=== PATIENT | male | born 1935 | race Caucasian/White ===

== ENCOUNTER 2022-09-29 10:51 | Emergency (ER) | payer MEDICARE, MEDICAID ==
[~2022-09-29] VITALS: Ht 172.7 cm; Wt 82.3 kg
[2022-09-29 11:21] LABS: CLARITY,URINE CLOUDY (Clear); COLOR,URINE YELLOW (Yellow); GLUCOSE, URINE >=1000 mg/dl (Neg); KETONES,URINE NEGATIVE (Neg); LEUKOCYTE ESTERASE ,URINE NEGATIVE (Neg); NITRITES, URINE NEGATIVE (Neg); OCCULT BLOOD,URINE LARGE (Neg); PROTEIN,URINE 100 mg/dl (Neg); UA COLLECTION TYPE VOIDED; UROBILINOGEN,URINE 0.2 E.U/dL (0.2-1.0)
[2022-09-29 11:25] LABS: BASOPHILS # (AUTO) 0.1 X10'3 (0-0.2); EOSINOPHILS # (AUTO) 0.2 X10'3 (0-0.9); EOSINOPHILS % (AUTO) 3.6 % (0-6); HEMATOCRIT 40.4 % (42.0-52.0); HEMOGLOBIN 12.9 g/dl (14.0-17.9); LYMPHOCYTES # (AUTO) 1.1 X10'3 (1.1-4.8); LYMPHOCYTES % (AUTO) 21.3 % (21-51); MEAN CORPUSCULAR HEMOGLOBIN 29.4 PG (27.0-31.0); MEAN CORPUSCULAR VOLUME 91.7 FL (78-98); MEAN PLATELET VOLUME 8.8 FL (7.4-10.4); MONOCYTES # (AUTO) 0.5 X10'3 (0-0.9); NEUTROPHILS # (AUTO) 3.4 X10'3 (1.8-7.7); NEUTROPHILS % (AUTO) 64.1 % (42-75); PLATELET COUNT 161 X10'3 (140-440); RED BLOOD COUNT 4.41 X10'6 (4.70-6.10); RED CELL DISTRIBUTION WIDTH 14.6 % (11.5-14.5); WHITE BLOOD COUNT 5.4 X10'3 (4.5-11.0)
[2022-09-29 11:34] LABS: HYALINE CASTS 0-3 /LPF (NEGATIVE); MUCUS STRANDS FEW /LPF (Neg); SQUAMOUS EPITHELIAL CELL,UR FEW /LPF (FEW)
[2022-09-29 11:35] LABS: BACTERIA,URINE FEW /HPF (Neg); RBC,URINE TNTC /HPF (0-2); WBC,URINE 0-4 /HPF (0-4)
[2022-09-29 11:39] LABS: ALANINE AMINOTRANSFERASE 23 U/L (12-78); ALBUMIN 3.1 G/DL (3.4-5.0); ALBUMIN/GLOBULIN RATIO 0.8 (1.1-1.5); ALKALINE PHOSPHATASE 85 IU/L (46-116); ANION GAP 2 (8-16); ASPARTATE AMINO TRANSFERASE 22 U/L (10-37); BILIRUBIN,TOTAL 0.5 MG/DL (0.1-1.0); BLOOD UREA NITROGEN 25 MG/DL (7-18); CALCIUM 8.8 MG/DL (8.5-10.1); CHLORIDE 106 MMOL/L (99-107); CREATININE 1.67 MG/DL (0.60-1.10); GLUCOSE 311 MG/DL (70-104); LIPASE 80 U/L (73-393); POTASSIUM 4.5 MMOL/L (3.5-5.1); SODIUM 141 MMOL/L (135-145); TOTAL CARBON DIOXIDE 32.8 MMOL/L (24-32); TOTAL PROTEIN 7.1 G/DL (6.4-8.2); eGFR 39 ML/MIN
[2022-09-29 12:17] VITALS: BP 161/86
== END 2022-09-29 12:19 | disposition home or self-care (01) ==
LOC: ER 10:51
DX: E11.22 Type 2 diabetes mellitus with diabetic chronic kidney disease (principal); N18.9 Chronic kidney disease, unspecified; R31.9 Hematuria, unspecified
CPT/HCPCS: 36415; 80053; 81001; 83690; 85025; 99284

== ENCOUNTER 2023-04-01 13:57 | Inpatient (IN) | payer MEDICARE, MEDICAID ==
[~2023-04-01] VITALS: Ht 172.7 cm; Wt 97.7 kg
[2023-04-01 14:18] LABS: BASOPHILS # (AUTO) 0.1 X10'3 (0-0.2); BASOPHILS % (AUTO) 1.1 % (0-1); EOSINOPHILS # (AUTO) 0.2 X10'3 (0-0.9); EOSINOPHILS % (AUTO) 3.4 % (0-6); HEMATOCRIT 41.7 % (42.0-52.0); HEMOGLOBIN 13.6 g/dl (14.0-17.9); LYMPHOCYTES # (AUTO) 1.3 X10'3 (1.1-4.8); LYMPHOCYTES % (AUTO) 20.6 % (21-51); MEAN CORPUSCULAR HGB CONC 32.7 g/dL (33.0-36.5); MEAN CORPUSCULAR VOLUME 91.6 FL (78-98); MEAN PLATELET VOLUME 8.3 FL (7.4-10.4); MONOCYTES # (AUTO) 0.6 X10'3 (0-0.9); MONOCYTES % (AUTO) 9.5 % (2-12); NEUTROPHILS % (AUTO) 65.4 % (42-75); PLATELET COUNT 175 X10'3 (140-440); RED BLOOD COUNT 4.55 X10'6 (4.70-6.10); RED CELL DISTRIBUTION WIDTH 14.8 % (11.5-14.5); WHITE BLOOD COUNT 6.1 X10'3 (4.5-11.0)
[2023-04-01 14:34] LABS: ALANINE AMINOTRANSFERASE 22 U/L (12-78); ALBUMIN/GLOBULIN RATIO 0.8 (1.1-1.5); ALKALINE PHOSPHATASE 96 IU/L (46-116); ANION GAP 5 (8-16); ASPARTATE AMINO TRANSFERASE 19 U/L (10-37); BILIRUBIN,TOTAL 0.5 MG/DL (0.1-1.0); BLOOD UREA NITROGEN 25 MG/DL (7-18); BUN/CREATININE RATIO 12.5 (10.0-20.0); CHLORIDE 105 MMOL/L (99-107); GLUCOSE 225 MG/DL (70-104); POTASSIUM 4.7 MMOL/L (3.5-5.1); SODIUM 140 MMOL/L (135-145); TOTAL CARBON DIOXIDE 30.3 MMOL/L (24-32); eGFR 32 ML/MIN
--- NOTE | 2023-04-01 18:35 | NUR ---
DR BROWN NOTIFIED OF PT HIGH BP. PT DENEIS HEADACHE RO PAIN. PER CAREGIVER, PT HAD HTN AND TAKES MEDICATION FOR IT BUT HAS NOT HAD TONIGHTS DOSE DUE TO BEING HERE.
[2023-04-01] MEDS ORDERED: morphine 2 MG/ML inj. syringe IV ONE (18:50)
[2023-04-01] MEDS ORDERED: nitroGLYCERIN 1gm ointment UD TP ONE (18:50)
[2023-04-01] MEDS ORDERED: ondansetron/PF 4mg/2ml inj IV ONE (19:25)
[2023-04-01] MEDS ORDERED: iohexol 350MG/ML 100ml bottle IV ONE (19:46)
[2023-04-01] MEDS: MESSAGE TO NURSING PO NR (20:37)
[2023-04-01] MEDS ORDERED: temazepam 15mg capsule PO PRN (21:00)
[2023-04-01] MEDS ORDERED: ESCI5TAB17 PO (22:11)
[2023-04-01] MEDS ORDERED: GLIP5TAB13 PO (22:11)
[2023-04-01] MEDS ORDERED: SITA100T15 PO (22:11)
[2023-04-01] MEDS ORDERED: OMEP40CA21 PO (22:11)
[2023-04-01] MEDS ORDERED: SIMV-42 PO (22:11)
[2023-04-01] MEDS ORDERED: FLO0.4C PO (22:11)
[2023-04-01] MEDS ORDERED: ROPI1TAB47 PO (22:11)
[2023-04-01] MEDS ORDERED: GABA300C PO (22:12)
[2023-04-01] MEDS ORDERED: DOCU100C40 PO (23:03)
[2023-04-01] MEDS ORDERED: LORA10TA7 PO (23:03)
[2023-04-01] MEDS ORDERED: ASPI-1265 PO (23:03)
[2023-04-01] MEDS ORDERED: NITR0.4T51 SL (23:03)
[2023-04-01] MEDS ORDERED: POLY17PO10 PO (23:03)
[2023-04-01] MEDS ORDERED: ACET-1995 PO (23:03)
[2023-04-01] MEDS ORDERED: CALC-102 PO (23:03)
[2023-04-01] MEDS ORDERED: MELA5TAB21 PO (23:03)
--- NOTE | 2023-04-01 23:05 | NUR ---
LEO MCINTOSH- [phone] TERRA[employer]O LABORER
--- NOTE | 2023-04-01 23:11 | NUR ---
PT LIVED AT [facility] Addendum: 04/01/23 at 2311 by [facility] AND IS NOT CONSERVED.
[2023-04-01] MEDS ORDERED: morphine 2 MG/ML inj. syringe IV PRN ×2 (23:15)
[2023-04-01] MEDS ORDERED: ondansetron 4mg rapidly disintigrating tab PO PRN (23:15)
[2023-04-01] MEDS ORDERED: HYDROcodone/acetaminophen 10/325mg tab PO PRN (23:15)
[2023-04-01] MEDS ORDERED: HYDROcodone/acetaminophen 5mg/325mg tablet PO PRN (23:15)
[2023-04-01] MEDS ORDERED: mag hydrox/Alum hydrox/simeth 30ml oral suspension PO PRN (23:15)
[2023-04-01] MEDS ORDERED: diphenhydrAMINE 50 mg/ml inj IV PRN (23:15)
[2023-04-01] MEDS ORDERED: diphenhydrAMINE 25mg capsule PO PRN (23:15)
[2023-04-01] MEDS ORDERED: bisacodyl 10mg suppository rectal RC PRN (23:15)
[2023-04-01] MEDS ORDERED: acetaminophen 325mg tablet PO PRN ×2 (23:15)
[2023-04-01] MEDS ORDERED: ondansetron/PF 4mg/2ml inj IV PRN (23:15)
[2023-04-01] MEDS ORDERED: acetaminophen 650mg rectal suppository RC PRN (23:15)
[2023-04-01] MEDS ORDERED: magnesium hydroxide 30ml (MOM) UD suspension PO PRN (23:15)
[2023-04-01] MEDS ORDERED: DEXTROSE 15 GM of carb/4 tabs (each vial/BOTTLE has 4 tablets) PO PRN ×2 (23:20)
[2023-04-01] MEDS ORDERED: MESSAGE TO PHARMACY PO ONE (23:20)
[2023-04-01] MEDS ORDERED: regadenoson 0.4mg/5ml syringe IV PRN (23:20)
[2023-04-01] MEDS ORDERED: nitroGLYCERIN 0.4mg SUBLingual tab SL PRN (23:20)
[2023-04-01] MEDS ORDERED: dextrose 50%-water 50ml dispensing syringe IV PRN ×2 (23:20)
[2023-04-01] MEDS ORDERED: insulin Lispro (HumaLOG) vial - multi-dose SQ SCH (23:20)
[2023-04-01] MEDS ORDERED: aminophylline 250mg/10ml inj. IV PRN (23:20)
[2023-04-01] MEDS ORDERED: metoprolol tartrate 1mg/ml inj IV PRN (23:20)
[2023-04-01] MEDS ORDERED: glucagon, human recombinant 1mg kit SUBCUT PRN (23:20)
[2023-04-01] MEDS: sodium chloride 0.45% 1,000 ML IV SCH (23:41)
[2023-04-02] VITALS (11 sets, daily range): BP systolic 113–173; BP diastolic 61–97; PULSE 79–98; RESP 14–18; TEMP 97.7–98.6; O2SAT 95–100
[2023-04-02] MEDS: heparin, porcine 5000 units/ml vial SQ SCH ×2 (00:33→08:43)
[2023-04-02 00:38] LABS: BASOPHILS # (AUTO) 0.1 X10'3 (0-0.2); EOSINOPHILS # (AUTO) 0.2 X10'3 (0-0.9); HEMATOCRIT 38.6 % (42.0-52.0); LYMPHOCYTES # (AUTO) 1.3 X10'3 (1.1-4.8); LYMPHOCYTES % (AUTO) 20.6 % (21-51); MEAN CORPUSCULAR HGB CONC 33.6 g/dL (33.0-36.5); MEAN CORPUSCULAR VOLUME 92.2 FL (78-98); MEAN PLATELET VOLUME 8.5 FL (7.4-10.4); MONOCYTES # (AUTO) 0.6 X10'3 (0-0.9); MONOCYTES % (AUTO) 10.1 % (2-12); NEUTROPHILS % (AUTO) 64.3 % (42-75); PLATELET COUNT 161 X10'3 (140-440); RED BLOOD COUNT 4.18 X10'6 (4.70-6.10); RED CELL DISTRIBUTION WIDTH 14.6 % (11.5-14.5); WHITE BLOOD COUNT 6.2 X10'3 (4.5-11.0)
[2023-04-02 01:02] LABS: HEMOGLOBIN A1C 7.3 % (4.5-6.2)
[2023-04-02 01:18] LABS: APTT 26 SECONDS (22-32)
[2023-04-02 01:36] LABS: ALANINE AMINOTRANSFERASE 23 U/L (12-78); ALBUMIN 2.8 G/DL (3.4-5.0); ALBUMIN/GLOBULIN RATIO 0.8 (1.1-1.5); ALKALINE PHOSPHATASE 89 IU/L (46-116); ANION GAP 3 (8-16); ASPARTATE AMINO TRANSFERASE 22 U/L (10-37); BILIRUBIN,TOTAL 0.4 MG/DL (0.1-1.0); BLOOD UREA NITROGEN 23 MG/DL (7-18); BUN/CREATININE RATIO 12.5 (10.0-20.0); CALCIUM 8.8 MG/DL (8.5-10.1); CHLORIDE 106 MMOL/L (99-107); CHOL/HDL RATIO 3.2 (0.00-4.99); CHOLESTEROL 149 MG/DL (0-200); CREATININE 1.84 MG/DL (0.60-1.10); GLUCOSE 183 MG/DL (70-104); HDL CHOLESTEROL 47 MG/DL (35-60); LDL CHOLESTEROL 80 MG/DL (50-100); MAGNESIUM 2.1 MG/DL (1.5-2.4); PHOSPHORUS 4.7 MG/DL (2.3-4.5); POTASSIUM 4.2 MMOL/L (3.5-5.1); SODIUM 142 MMOL/L (135-145); TOTAL CARBON DIOXIDE 33.1 MMOL/L (24-32); TOTAL PROTEIN 6.5 G/DL (6.4-8.2); TRIGLYCERIDES 97 MG/DL (20-135); eGFR 35 ML/MIN
--- NOTE | 2023-04-02 06:30 | NUR ---
ASSUMED CARE FROM ALICJA VIEYRA. PT WAS LAYING IN URINE, ALL BLANKETS WERE WET WITH URINE. THIS RN ASKED ALICJA WHEN THE LAST TIME SHE CHECKED TO SEE IF PT WAS CONT/INCONT ALICJA STATES SHE HADN'T. PT WAS CHANGED INTO CLEAN DRY CLOTHES. BEDDING WAS ALSO CHANGED. pT WAS ASSISTED TO THE RR.
[2023-04-02] MEDS ORDERED: docusate sod 100mg capsule PO SCH (08:00)
--- NOTE | 2023-04-02 08:51 | NUR ---
Pt taken to his stress test.
--- NOTE | 2023-04-02 08:55 | NUR ---
pt to nuc med on monitor with RN, pt able to transfer self with min assist from wheelchair to nuc med table
[2023-04-02] MEDS ORDERED: pantoprazole 40mg Tablet.DR PO SCH (09:13)
[2023-04-02] MEDS: sodium chloride 0.45% 1,000 ML IV SCH (09:15)
[2023-04-02] MEDS: MESSAGE TO NURSING PO NR (10:00)
--- NOTE | 2023-04-02 10:01 | NUR ---
report given to Ayah RN, pt to go PCU after stress test
--- NOTE | 2023-04-02 13:10 | NUR ---
[facility] AT [facility]ED[facility] - SOON JASMINE SCAN IS AVAILABLE, THEY WILL WRITE DC ORDERS TO GO HOME
--- NOTE | 2023-04-02 14:44 | NUR ---
DM Consult: Pt hx T2DM and developmental delay A1C 7.3% per EMR. A1C appropriate given advanced age and education not appropriate given hx; ed deferred. Addendum: 04/02/23 at [address] Amended: Links added.
--- NOTE | 2023-04-02 14:52 | NUR ---
STRESS TEST RESULTS ARE BACK AND I CALLED DR BUTLER TO LET HER KNOW -
[2023-04-02] MEDS ORDERED: CALC-102 PO (15:29)
[2023-04-02] MEDS ORDERED: POLY17PO10 PO (15:29)
[2023-04-02] MEDS ORDERED: LISI5TAB22 PO (15:29)
--- NOTE | 2023-04-02 15:44 | NUR ---
PT HAS DC ORDERS. SPOKE WITH BARRY FROM HIS FACILITY AND SHE STATED SUJATHA - A STAFF MEMBER WILL BE COMING TO PICK PATIENT UP.
--- NOTE | 2023-04-02 17:09 | NUR ---
pt dc'd back to his private facility. all dc instructions explained to beto, a staff member at the facility with beto verbalizing understanding regarding the plan of care. pts vss, he is instructed to follow up with his pmd and get a referral to a image archivist to have an echocardiogram. pt left via his own wheelchair
[2023-04-02] MEDS ORDERED: Melatonin 3mg tablet PO SCH (21:00)
[2023-04-02] MEDS ORDERED: atorvastatin 10mg tablet PO SCH (21:00)
[2023-04-02] MEDS ORDERED: gabapentin 300mg capsule PO SCH (21:00)
[2023-04-02] MEDS ORDERED: ROPINIRole 1mg tablet PO SCH (21:00)
[2023-04-02] MEDS ORDERED: insulin glargine (Lantus) pen - multi-dose SQ SCH (21:00)
[2023-04-03] MEDS ORDERED: ESCITALOPRAM OXALATE 5 MG TABLET PO SCH (08:00)
[2023-04-03] MEDS ORDERED: polyethylene glycol 3350 17gm powd pack PO SCH (08:00)
[2023-04-03] MEDS ORDERED: aspirin 81mg tab.chew PO SCH (08:00)
[2023-04-03] MEDS ORDERED: tamsulosin 0.4mg capsule PO SCH (08:00)
== END 2023-04-02 17:01 | disposition home or self-care (01) | DRG 305 ==
LOC: ER 13:58 → ED HOLD 23:16 → EDBEDREQ 23:47 → PCU 3S 04-02 10:16
PROVIDERS: ADMIT Family Medicine; ATTEND Internal Medicine
PROC: 4A02XM4 Measurement of Cardiac Total Activity, External Approach (ICD-10-PCS; principal; 2023-04-01)
PROC: 3E073KZ Introduction of Other Diagnostic Substance into Coronary Artery, Percutaneous Approach (ICD-10-PCS; 2023-04-01)
PROC: BW251ZZ Computerized Tomography (CT Scan) of Chest, Abdomen and Pelvis using Low Osmolar Contrast (ICD-10-PCS; 2023-04-01)
DX: I16.0 Hypertensive urgency (principal); I16.1 Hypertensive emergency; N17.9 Acute kidney failure, unspecified; E78.5 Hyperlipidemia, unspecified; E11.22 Type 2 diabetes mellitus with diabetic chronic kidney disease; E11.65 Type 2 diabetes mellitus with hyperglycemia; G25.81 Restless legs syndrome; R07.89 Other chest pain; G89.4 Chronic pain syndrome; I12.9 Hypertensive chronic kidney disease with stage 1 through stage 4 chronic kidney disease, or unspecified chronic kidney disease; J44.9 Chronic obstructive pulmonary disease, unspecified; K21.9 Gastro-esophageal reflux disease without esophagitis; N18.30 Chronic kidney disease, stage 3 unspecified; N40.0 Benign prostatic hyperplasia without lower urinary tract symptoms; R26.9 Unspecified abnormalities of gait and mobility; Z79.899 Other long term (current) drug therapy; Z79.82 Long term (current) use of aspirin
CPT/HCPCS: 36415; 71045; 71275; 74174; 78452; 80053; 80061; 83036; 83735; 83880; 84100; 84443; 84484; 85025; 85610; 85730; 93005; 93017; 97116; 97161; 97530; 99285; A9500; G0378; J1644; J1815; J2270; J2405; J2785; J3490; J7030; Q9967

== ENCOUNTER 2023-05-17 13:22 | Emergency (ER) | payer MEDICARE, MEDICAID ==
[~2023-05-17] VITALS: Ht 172.7 cm; Wt 96.4 kg
[~2023-05-17 13:22] MED LIST: ACET-1995 PO; ASPI-1265 PO; CALC-102 PO; DOCU100C40 PO; ESCI5TAB17 PO; FLO0.4C PO; GABA300C PO; LISI5TAB22 PO; MELA5TAB21 PO; NITR0.4T51 SL; OMEP40CA21 PO; POLY17PO10 PO; ROPI1TAB47 PO; SIMV-42 PO; SITA100T15 PO
[2023-05-17 13:28] VITALS: PULSE 113
--- NOTE | 2023-05-17 14:34 | NUR ---
PER DR COLEMAN NO HEAD CT NEEDED AT THIS TIME
[2023-05-17 14:49] LABS: BASOPHILS % (AUTO) 0.3 % (0-1); EOSINOPHILS % (AUTO) 0.2 % (0-6); HEMATOCRIT 42.3 % (42.0-52.0); HEMOGLOBIN 13.8 g/dl (14.0-17.9); LYMPHOCYTES # (AUTO) 0.7 X10'3 (1.1-4.8); LYMPHOCYTES % (AUTO) 8.5 % (21-51); MEAN CORPUSCULAR HEMOGLOBIN 30.3 PG (27.0-31.0); MEAN CORPUSCULAR HGB CONC 32.6 g/dL (33.0-36.5); MEAN PLATELET VOLUME 8.7 FL (7.4-10.4); NEUTROPHILS # (AUTO) 6.7 X10'3 (1.8-7.7); PLATELET COUNT 169 X10'3 (140-440); RED BLOOD COUNT 4.55 X10'6 (4.70-6.10); RED CELL DISTRIBUTION WIDTH 14.7 % (11.5-14.5); WHITE BLOOD COUNT 8.5 X10'3 (4.5-11.0)
[2023-05-17 15:05] LABS: ALANINE AMINOTRANSFERASE 23 U/L (12-78); ALBUMIN 3.2 G/DL (3.4-5.0); ALBUMIN/GLOBULIN RATIO 0.7 (1.1-1.5); ALKALINE PHOSPHATASE 118 IU/L (46-116); ANION GAP 5 (8-16); ASPARTATE AMINO TRANSFERASE 27 U/L (10-37); BLOOD UREA NITROGEN 19 MG/DL (7-18); BUN/CREATININE RATIO 10.9 (10.0-20.0); CALCIUM 9.4 MG/DL (8.5-10.1); CHLORIDE 99 MMOL/L (99-107); CREATININE 1.75 MG/DL (0.60-1.10); GLUCOSE 283 MG/DL (70-104); LIPASE < 50 U/L (73-393); POTASSIUM 4.6 MMOL/L (3.5-5.1); SODIUM 134 MMOL/L (135-145); TOTAL PROTEIN 7.8 G/DL (6.4-8.2); eCRCL 29 ML/MIN; eGFR 37 ML/MIN
[2023-05-17] MEDS ORDERED: normal saline 1000ML IV soln IVB ONE (16:30)
[2023-05-17] MEDS ORDERED: lactulose 20gm/30ml cup PO ONE (17:40)
[2023-05-17 18:09] VITALS: BP 184/88; RESP 18; TEMP 99; O2SAT 96
[2023-05-18] MEDS ORDERED: DOCU-171 PO (17:02)
== END 2023-05-17 18:13 | disposition home or self-care (01) ==
LOC: ER 13:22
DX: K59.00 Constipation, unspecified (principal); E78.00 Pure hypercholesterolemia, unspecified; I10 Essential (primary) hypertension; E13.22 Other specified diabetes mellitus with diabetic chronic kidney disease; I12.9 Hypertensive chronic kidney disease with stage 1 through stage 4 chronic kidney disease, or unspecified chronic kidney disease; N18.9 Chronic kidney disease, unspecified
CPT/HCPCS: 36415; 74176; 80053; 83690; 84145; 85025; 99284; J7030

== ENCOUNTER 2023-05-18 09:19 | Emergency (ER) | payer MEDICARE, MEDICAID ==
[~2023-05-18] VITALS: Ht 172.7 cm; Wt 100.0 kg
[2023-05-18 09:33] VITALS: TEMP 98
[2023-05-18] MEDS ORDERED: ondansetron/PF 4mg/2ml inj IV ONE (12:50)
[2023-05-18] MEDS ORDERED: normal saline 1000ML IV soln IVB ONE (12:50)
[2023-05-18 14:07] LABS: BASOPHILS % (AUTO) 0.3 % (0-1); EOSINOPHILS % (AUTO) 0.1 % (0-6); HEMOGLOBIN 12.9 g/dl (14.0-17.9)
[2023-05-18 14:11] LABS: HEMATOCRIT 38.8 % (42.0-52.0); LYMPHOCYTES # (AUTO) 0.6 X10'3 (1.1-4.8); LYMPHOCYTES % (AUTO) 6.5 % (21-51); MEAN CORPUSCULAR HEMOGLOBIN 30.6 PG (27.0-31.0); MEAN CORPUSCULAR HGB CONC 33.1 g/dL (33.0-36.5); MEAN CORPUSCULAR VOLUME 92.3 FL (78-98); MEAN PLATELET VOLUME 8.5 FL (7.4-10.4); MONOCYTES % (AUTO) 10.4 % (2-12); NEUTROPHILS # (AUTO) 8.2 X10'3 (1.8-7.7); NEUTROPHILS % (AUTO) 82.7 % (42-75); PLATELET COUNT 175 X10'3 (140-440); RED BLOOD COUNT 4.21 X10'6 (4.70-6.10); RED CELL DISTRIBUTION WIDTH 14.7 % (11.5-14.5); WHITE BLOOD COUNT 9.9 X10'3 (4.5-11.0)
[2023-05-18 14:19] LABS: ALANINE AMINOTRANSFERASE 26 U/L (12-78); ALBUMIN 2.9 G/DL (3.4-5.0); ALBUMIN/GLOBULIN RATIO 0.7 (1.1-1.5); ALKALINE PHOSPHATASE 109 IU/L (46-116); ANION GAP 6 (8-16); ASPARTATE AMINO TRANSFERASE 34 U/L (10-37); BLOOD UREA NITROGEN 17 MG/DL (7-18); CHLORIDE 99 MMOL/L (99-107); CREATININE 1.54 MG/DL (0.60-1.10); GLUCOSE 210 MG/DL (70-104); LIPASE < 50 U/L (73-393); SODIUM 133 MMOL/L (135-145); TOTAL CARBON DIOXIDE 27.8 MMOL/L (24-32); TOTAL PROTEIN 7.1 G/DL (6.4-8.2); eCRCL 33 ML/MIN; eGFR 43 ML/MIN
[2023-05-18 14:40] VITALS: BP 148/98; PULSE 78; RESP 18; O2SAT 94
[2023-05-18 14:44] LABS: POTASSIUM 4.4 MMOL/L (3.5-5.1)
[2023-05-18] MEDS ORDERED: bisacodyl 10mg suppository rectal RC STA (15:23)
[2023-05-18] MEDS ORDERED: lactulose 20gm/30ml cup PO ONE (15:40)
[2023-05-18] MEDS ORDERED: DOCU-171 PO (17:02)
[2023-05-19] MEDS ORDERED: ISOS30TA84 PO (13:03)
[2023-05-19] MEDS ORDERED: GLIP5TAB13 PO (13:03)
== END 2023-05-18 17:13 | disposition home or self-care (01) ==
LOC: ER 09:20
DX: K59.00 Constipation, unspecified (principal); E78.00 Pure hypercholesterolemia, unspecified; I10 Essential (primary) hypertension; E11.9 Type 2 diabetes mellitus without complications; E03.9 Hypothyroidism, unspecified; Z79.899 Other long term (current) drug therapy; Z79.82 Long term (current) use of aspirin; Z79.1 Long term (current) use of non-steroidal anti-inflammatories (NSAID); Z79.2 Long term (current) use of antibiotics
CPT/HCPCS: 96374; 99285; J2405; J7030; 36415; 76700; 80053; 83690; 85025; 93005

== ENCOUNTER 2023-05-18 20:39 | Inpatient (IN) | payer MEDICARE, MEDICAID ==
[~2023-05-18] VITALS: Ht 172.7 cm; Wt 101.2 kg
[~2023-05-18 20:39] MED LIST changes: +DOCU-171 PO
[2023-05-18 22:09] LABS: BASOPHILS % (AUTO) 0.3 % (0-1); EOSINOPHILS % (AUTO) 0 % (0-6); HEMATOCRIT 42.3 % (42.0-52.0); HEMOGLOBIN 13.7 g/dl (14.0-17.9); LYMPHOCYTES # (AUTO) 0.4 X10'3 (1.1-4.8); MEAN CORPUSCULAR HEMOGLOBIN 30.1 PG (27.0-31.0); MEAN CORPUSCULAR HGB CONC 32.3 g/dL (33.0-36.5); MEAN CORPUSCULAR VOLUME 93.3 FL (78-98); MEAN PLATELET VOLUME 8.5 FL (7.4-10.4); MONOCYTES # (AUTO) 1.3 X10'3 (0-0.9); MONOCYTES % (AUTO) 9.2 % (2-12); NEUTROPHILS # (AUTO) 12.3 X10'3 (1.8-7.7); NEUTROPHILS % (AUTO) 87.5 % (42-75); PLATELET COUNT 176 X10'3 (140-440); RED BLOOD COUNT 4.53 X10'6 (4.70-6.10); RED CELL DISTRIBUTION WIDTH 14.6 % (11.5-14.5)
[2023-05-18 22:17] LABS: INR 1.3 INR; PROTHROMBIN TIME 13.3 SECONDS (9.0-12.0)
[2023-05-18 22:21] LABS: ALANINE AMINOTRANSFERASE 34 U/L (12-78); ALBUMIN 3.1 G/DL (3.4-5.0); ALBUMIN/GLOBULIN RATIO 0.7 (1.1-1.5); ALKALINE PHOSPHATASE 126 IU/L (46-116); ANION GAP 8 (8-16); ASPARTATE AMINO TRANSFERASE 42 U/L (10-37); BILIRUBIN,TOTAL 1.4 MG/DL (0.1-1.0); BLOOD UREA NITROGEN 22 MG/DL (7-18); BUN/CREATININE RATIO 12.9 (10.0-20.0); CALCIUM 9.4 MG/DL (8.5-10.1); CHLORIDE 98 MMOL/L (99-107); CREATININE 1.71 MG/DL (0.60-1.10); GLUCOSE 293 MG/DL (70-104); POTASSIUM 4.8 MMOL/L (3.5-5.1); SODIUM 133 MMOL/L (135-145); TOTAL PROTEIN 7.7 G/DL (6.4-8.2); eCRCL 30 ML/MIN; eGFR 38 ML/MIN
--- NOTE | 2023-05-18 23:53 | NUR ---
Dr. Espinoza at bedside C-spine clear removed c-collar at bedside
[2023-05-19] MEDS ORDERED: normal saline 1000ml 1,000 ML IV ONE (00:10)
[2023-05-19] MEDS ORDERED: CefTRIAXone/D5W-Rocephin 1gm 50 ML IV ONE (00:10)
[2023-05-19 01:16] LABS: BILIRUBIN,URINE NEGATIVE (Neg); COLOR,URINE YELLOW (Yellow); GLUCOSE, URINE >=1000 mg/dl (Neg); KETONES,URINE 15 mg/dl (Neg); LEUKOCYTE ESTERASE ,URINE NEGATIVE (Neg); NITRITES, URINE NEGATIVE (Neg); OCCULT BLOOD,URINE LARGE (Neg); PROTEIN,URINE >=300 mg/dl (Neg); UROBILINOGEN,URINE 0.2 E.U/dL (0.2-1.0)
[2023-05-19 01:30] LABS: CLARITY,URINE SLIGHTLY CLOUDY (Clear); UA COLLECTION TYPE STRAIGHT CATH
[2023-05-19 01:45] LABS: BACTERIA,URINE FEW /HPF (Neg); SQUAMOUS EPITHELIAL CELL,UR FEW /LPF (FEW); WBC,URINE 0-4 /HPF (0-4)
[2023-05-19 01:46] LABS: HYALINE CASTS 0-3 /LPF (NEGATIVE)
[2023-05-19] MEDS ORDERED: bisacodyl 10mg suppository rectal RC PRN (03:00)
[2023-05-19] MEDS ORDERED: ondansetron 4mg rapidly disintigrating tab PO PRN (03:00)
[2023-05-19] MEDS ORDERED: HYDROcodone/acetaminophen 5mg/325mg tablet PO PRN (03:00)
[2023-05-19] MEDS ORDERED: ondansetron/PF 4mg/2ml inj IV PRN (03:00)
[2023-05-19] MEDS ORDERED: HYDROcodone/acetaminophen 10/325mg tab PO PRN (03:00)
[2023-05-19] MEDS ORDERED: magnesium hydroxide 30ml (MOM) UD suspension PO PRN (03:00)
[2023-05-19] MEDS ORDERED: morphine 2 MG/ML inj. syringe IV PRN (03:00)
[2023-05-19] MEDS ORDERED: diphenhydrAMINE 25mg capsule PO PRN (03:00)
[2023-05-19] MEDS ORDERED: mag hydrox/Alum hydrox/simeth 30ml oral suspension PO PRN (03:00)
[2023-05-19] MEDS ORDERED: acetaminophen 650mg rectal suppository RC PRN (03:00)
[2023-05-19] MEDS ORDERED: diphenhydrAMINE 50 mg/ml inj IV PRN (03:00)
[2023-05-19] MEDS ORDERED: acetaminophen 325mg tablet PO PRN ×2 (03:00)
[2023-05-19 03:18] LABS: PRO BRAIN NATRIURETIC PEPTIDE 1959 PG/ML (0-450)
[2023-05-19] MEDS ORDERED: DEXTROSE 15 GM of carb/4 tabs (each vial/BOTTLE has 4 tablets) PO PRN ×2 (03:30)
[2023-05-19] MEDS ORDERED: glucagon, human recombinant 1mg kit SUBCUT PRN (03:30)
[2023-05-19] MEDS ORDERED: MESSAGE TO PHARMACY PO ONE (03:30)
[2023-05-19] MEDS ORDERED: dextrose 50%-water 50ml dispensing syringe IV PRN ×2 (03:30)
[2023-05-19] MEDS: normal saline 1000ml 1,000 ML IV SCH (03:44)
[2023-05-19] MEDS ORDERED: lactulose 20gm/30ml cup PO PRN (03:45)
[2023-05-19] MEDS ORDERED: magnesium citrate 296ml oral solution PO ONE (03:45)
[2023-05-19 04:03] LABS: CREATINE KINASE 502 U/L (39-308); LIPASE < 50 U/L (73-393); MAGNESIUM 1.9 MG/DL (1.5-2.4); PHOSPHORUS 3.3 MG/DL (2.3-4.5)
[2023-05-19] MEDS: furosemide 20 MG/2 ML vial IV SCH ×2 (08:00→21:03)
[2023-05-19] MEDS ORDERED: furosemide 10 MG/1 ML 10ml inj IV ONE (08:00)
[2023-05-19] MEDS: pantoprazole 40mg Tablet.DR PO SCH (08:04)
[2023-05-19] MEDS: CefTRIAXone/D5W-Rocephin 1gm 50 ML IV SCH (08:06)
[2023-05-19] MEDS: docusate sod 100mg capsule PO SCH ×2 (08:06→21:03)
[2023-05-19] MEDS: heparin, porcine 5000 units/ml vial SQ SCH ×2 (08:07→21:05)
[2023-05-19 08:39] LABS: APTT 30 SECONDS (22-32); INR 1.2 INR; PROTHROMBIN TIME 12.6 SECONDS (9.0-12.0)
[2023-05-19] MEDS: insulin Lispro (HumaLOG) vial - multi-dose SQ SCH ×2 (09:29→13:10)
[2023-05-19] MEDS ORDERED: LidoCAINE 2% Topical Jelly 11mL syringe TOP ONE (09:55)
[2023-05-19] MEDS ORDERED: GLIP5TAB13 PO (13:03)
[2023-05-19] MEDS ORDERED: ISOS30TA84 PO (13:03)
--- NOTE | 2023-05-19 15:32 | NUR ---
PT TO MRI
--- NOTE | 2023-05-19 16:03 | NUR ---
MRI did not take the patient after all. The computer systems technology instructor said they will do it tomorrow instead
[2023-05-19] MEDS ORDERED: nitroGLYCERIN 0.4mg SUBLingual tab SL PRN (17:20)
--- NOTE | 2023-05-19 18:56 | NUR ---
Attempted to call report. Nurse unavailable at this time. Nurse will call back.
--- NOTE | 2023-05-19 19:13 | NUR ---
Patient in room ED 4. I have received report from VALENTIN ESTEBAN and had the opportunity to ask questions and will assume patient care when patient arrives.
[2023-05-19 19:20] VITALS: BP 108/56; PULSE 98; RESP 17; TEMP 97.5; O2SAT 94
[2023-05-19 20:00] VITALS: RESP 17; O2SAT 94
[2023-05-19] MEDS ORDERED: polyethylene glycol 3350 17gm powd pack PO SCH (21:00)
[2023-05-19] MEDS ORDERED: temazepam 15mg capsule PO PRN (21:00)
[2023-05-19] MEDS: polyethylene glycol 3350 17gm powd pack PO SCH (21:03)
[2023-05-19] MEDS: ROPINIRole 1mg tablet PO SCH (21:04)
[2023-05-19] MEDS: atorvastatin 10mg tablet PO SCH (21:04)
[2023-05-19] MEDS: Melatonin 3mg tablet PO SCH (21:04)
[2023-05-19] MEDS: gabapentin 300mg capsule PO SCH (21:04)
[2023-05-19] MEDS: insulin glargine (Lantus) pen - multi-dose SQ SCH (21:30)
[2023-05-19] MEDS: morphine 2 MG/ML inj. syringe IV PRN (21:34)
[2023-05-19 22:50] VITALS: BP 149/71; PULSE 101; RESP 16; TEMP 97.7; O2SAT 97
--- NOTE | 2023-05-20 06:29 | NUR ---
Problems reprioritized. Patient report given, questions answered & plan of care reviewed with ANITHA ESTEBAN.
[2023-05-20 06:42] LABS: BASOPHILS % (AUTO) 0.2 % (0-1); EOSINOPHILS # (AUTO) 0.1 X10'3 (0-0.9); HEMATOCRIT 36.3 % (42.0-52.0); LYMPHOCYTES # (AUTO) 0.7 X10'3 (1.1-4.8); LYMPHOCYTES % (AUTO) 8.1 % (21-51); MEAN CORPUSCULAR HEMOGLOBIN 30.5 PG (27.0-31.0); MEAN CORPUSCULAR HGB CONC 33.1 g/dL (33.0-36.5); MEAN CORPUSCULAR VOLUME 92.2 FL (78-98); MEAN PLATELET VOLUME 8.8 FL (7.4-10.4); MONOCYTES # (AUTO) 0.9 X10'3 (0-0.9); MONOCYTES % (AUTO) 10.7 % (2-12); NEUTROPHILS # (AUTO) 6.7 X10'3 (1.8-7.7); PLATELET COUNT 178 X10'3 (140-440); RED BLOOD COUNT 3.93 X10'6 (4.70-6.10); RED CELL DISTRIBUTION WIDTH 14.7 % (11.5-14.5); WHITE BLOOD COUNT 8.3 X10'3 (4.5-11.0)
[2023-05-20 06:53] VITALS: BP 110/45; PULSE 75; RESP 16; TEMP 98.4; O2SAT 98
[2023-05-20 06:53] LABS: ALANINE AMINOTRANSFERASE 24 U/L (12-78); ALBUMIN 2.1 G/DL (3.4-5.0); ALBUMIN/GLOBULIN RATIO 0.6 (1.1-1.5); ALKALINE PHOSPHATASE 105 IU/L (46-116); ANION GAP 5 (8-16); ASPARTATE AMINO TRANSFERASE 34 U/L (10-37); BILIRUBIN,TOTAL 0.5 MG/DL (0.1-1.0); BLOOD UREA NITROGEN 32 MG/DL (7-18); BUN/CREATININE RATIO 18.9 (10.0-20.0); CALCIUM 8.4 MG/DL (8.5-10.1); CHLORIDE 100 MMOL/L (99-107); CREATININE 1.69 MG/DL (0.60-1.10); GLUCOSE 109 MG/DL (70-104); SODIUM 135 MMOL/L (135-145); TOTAL CARBON DIOXIDE 30.1 MMOL/L (24-32); TOTAL PROTEIN 5.8 G/DL (6.4-8.2); eCRCL 30 ML/MIN; eGFR 39 ML/MIN
[2023-05-20] MEDS: tamsulosin 0.4mg capsule PO SCH (07:10)
[2023-05-20] MEDS: docusate sod 100mg capsule PO SCH ×3 (07:10→19:47)
[2023-05-20] MEDS: aspirin 81mg tab.chew PO SCH (07:10)
[2023-05-20] MEDS: linagliptin 5mg tablet PO SCH (07:10)
[2023-05-20] MEDS: pantoprazole 40mg Tablet.DR PO SCH (07:10)
[2023-05-20] MEDS: isosorbide mononitrate 30mg tab.SR.24H PO SCH (07:11)
[2023-05-20] MEDS: furosemide 20 MG/2 ML vial IV SCH ×2 (07:11→19:47)
[2023-05-20] MEDS: morphine 2 MG/ML inj. syringe IV PRN (07:11)
[2023-05-20] MEDS: ESCITALOPRAM OXALATE 5 MG TABLET PO SCH (07:11)
[2023-05-20] MEDS: CefTRIAXone/D5W-Rocephin 1gm 50 ML IV SCH (07:12)
[2023-05-20] MEDS: heparin, porcine 5000 units/ml vial SQ SCH ×2 (07:14→19:47)
[2023-05-20 08:00] VITALS: RESP 17; O2SAT 95
[2023-05-20] MEDS ORDERED: non-formulary drug (Omeprazole (Prilosec) 1 CAP) PO SCH (08:00)
[2023-05-20] MEDS: normal saline 1000ml 1,000 ML IV SCH (09:29)
[2023-05-20 10:00] VITALS: BP 93/51; PULSE 107; RESP 17; TEMP 98.1; O2SAT 95
[2023-05-20] MEDS: insulin Lispro (HumaLOG) vial - multi-dose SQ SCH ×2 (14:34→19:52)
[2023-05-20 18:00] VITALS: BP 107/31; PULSE 91; RESP 16; TEMP 98.6; O2SAT 98
--- NOTE | 2023-05-20 18:28 | NUR ---
Patient in room ORTHO 4009. I have received report from ANITHA ESTEBAN and had the opportunity to ask questions and assume patient care.
--- NOTE | 2023-05-20 18:32 | NUR ---
Problems reprioritized. Patient report given, questions answered & plan of care reviewed with Prudence.
[2023-05-20 20:00] VITALS: RESP 16; O2SAT 98
[2023-05-20] MEDS: polyethylene glycol 3350 17gm powd pack PO SCH (21:35)
[2023-05-20] MEDS: ROPINIRole 1mg tablet PO SCH (21:35)
[2023-05-20] MEDS: atorvastatin 10mg tablet PO SCH (21:36)
[2023-05-20] MEDS: Melatonin 3mg tablet PO SCH (21:36)
[2023-05-20] MEDS: gabapentin 300mg capsule PO SCH (21:36)
[2023-05-20] MEDS: insulin glargine (Lantus) pen - multi-dose SQ SCH (21:49)
[2023-05-20 22:00] VITALS: BP 126/58; PULSE 101; RESP 16; TEMP 97.8; O2SAT 97
--- NOTE | 2023-05-21 05:37 | NUR ---
Repositioned patient and bladder scanned. Very little urine output during shift. No visible urine in bladder. Patient is awake now and complained of back pain.
--- NOTE | 2023-05-21 06:39 | NUR ---
Patient in room ORTHO 4009. I have received report from JOSEPH ESTEBAN and had the opportunity to ask questions and assume patient care.
--- NOTE | 2023-05-21 06:42 | NUR ---
Problems reprioritized. Patient report given, questions answered & plan of care reviewed with YVONNE ESTEBAN.
[2023-05-21 06:49] VITALS: BP 173/74; PULSE 95; RESP 18; TEMP 97.9; O2SAT 92
[2023-05-21] MEDS: aspirin 81mg tab.chew PO SCH (07:42)
[2023-05-21] MEDS: CefTRIAXone/D5W-Rocephin 1gm 50 ML IV SCH (07:42)
[2023-05-21] MEDS: linagliptin 5mg tablet PO SCH (07:42)
[2023-05-21] MEDS: isosorbide mononitrate 30mg tab.SR.24H PO SCH (07:43)
[2023-05-21] MEDS: tamsulosin 0.4mg capsule PO SCH (07:43)
[2023-05-21] MEDS: pantoprazole 40mg Tablet.DR PO SCH (07:44)
[2023-05-21] MEDS: ESCITALOPRAM OXALATE 5 MG TABLET PO SCH (07:44)
[2023-05-21] MEDS: heparin, porcine 5000 units/ml vial SQ SCH ×2 (07:45→19:59)
[2023-05-21] MEDS: furosemide 20 MG/2 ML vial IV SCH ×2 (07:45→19:58)
[2023-05-21 07:54] LABS: BASOPHILS % (AUTO) 0.4 % (0-1); EOSINOPHILS # (AUTO) 0.2 X10'3 (0-0.9); HEMOGLOBIN 12.3 g/dl (14.0-17.9); LYMPHOCYTES # (AUTO) 0.5 X10'3 (1.1-4.8); LYMPHOCYTES % (AUTO) 6.2 % (21-51); MEAN CORPUSCULAR HEMOGLOBIN 30.9 PG (27.0-31.0); MEAN CORPUSCULAR HGB CONC 33.1 g/dL (33.0-36.5); MEAN CORPUSCULAR VOLUME 93.3 FL (78-98); MEAN PLATELET VOLUME 8.2 FL (7.4-10.4); MONOCYTES # (AUTO) 0.8 X10'3 (0-0.9); MONOCYTES % (AUTO) 10.4 % (2-12); NEUTROPHILS # (AUTO) 6.4 X10'3 (1.8-7.7); PLATELET COUNT 191 X10'3 (140-440); RED BLOOD COUNT 3.97 X10'6 (4.70-6.10); WHITE BLOOD COUNT 7.9 X10'3 (4.5-11.0)
[2023-05-21 08:11] LABS: ALANINE AMINOTRANSFERASE 30 U/L (12-78); ALBUMIN 2.1 G/DL (3.4-5.0); ALBUMIN/GLOBULIN RATIO 0.5 (1.1-1.5); ALKALINE PHOSPHATASE 114 IU/L (46-116); ANION GAP 4 (8-16); ASPARTATE AMINO TRANSFERASE 57 U/L (10-37); BILIRUBIN,TOTAL 0.4 MG/DL (0.1-1.0); BLOOD UREA NITROGEN 49 MG/DL (7-18); BUN/CREATININE RATIO 19.4 (10.0-20.0); CALCIUM 8.6 MG/DL (8.5-10.1); CHLORIDE 100 MMOL/L (99-107); CREATININE 2.52 MG/DL (0.60-1.10); GLUCOSE 152 MG/DL (70-104); SODIUM 135 MMOL/L (135-145); TOTAL CARBON DIOXIDE 30.7 MMOL/L (24-32); eCRCL 20 ML/MIN; eGFR 24 ML/MIN
[2023-05-21] MEDS: docusate sod 100mg capsule PO SCH ×2 (09:07)
[2023-05-21] MEDS: insulin Lispro (HumaLOG) vial - multi-dose SQ SCH ×3 (09:34→22:16)
[2023-05-21 10:35] VITALS: RESP 18; O2SAT 93
[2023-05-21 10:51] VITALS: BP 116/41; PULSE 97; RESP 18; TEMP 97.5; O2SAT 93
[2023-05-21] MEDS: HYDROcodone/acetaminophen 10/325mg tab PO PRN (14:58)
--- NOTE | 2023-05-21 15:39 | NUR ---
PT. COULD NOT LAY FLAT TO GO DO VQ SCAN OF LUNGS. TECH. STATED THE PT. NEEDED TO GO NOW BEC. OF CALIBRATED MACHINE AT 1445H. PT. WAS IN TOO MUCH PAIN, AND REFUSED TO GO. NOTIFIED. TECH AGREED TO COME BACK TOMORROW MORNING AT 0800 TO TRY AGAIN AFTER PT. IS MEDICATED.
[2023-05-21] MEDS: nystatin 15 GM powder TP SCH ×2 (15:40→21:00)
[2023-05-21] MEDS ORDERED: bisacodyl 10mg suppository rectal RC PRN (15:45)
--- NOTE | 2023-05-21 16:42 | NUR ---
WAITING ON NYSTATIN POWDER FROM PHARMACY AT THIS TIME
[2023-05-21 18:00] VITALS: BP 128/69; PULSE 107; RESP 18; TEMP 98.3; O2SAT 92
--- NOTE | 2023-05-21 18:28 | NUR ---
Problems reprioritized. Patient report given TO PRUDENCE RN, questions answered & plan of care reviewed with .
--- NOTE | 2023-05-21 19:05 | NUR ---
Patient in room ORTHO 4009. I have received report from YVONNE ESTEBAN and had the opportunity to ask questions and assume patient care.
[2023-05-21 20:00] VITALS: RESP 18; O2SAT 92
[2023-05-21] MEDS: atorvastatin 10mg tablet PO SCH (21:27)
[2023-05-21] MEDS: ROPINIRole 1mg tablet PO SCH (21:27)
[2023-05-21] MEDS: Melatonin 3mg tablet PO SCH (21:28)
[2023-05-21] MEDS: polyethylene glycol 3350 17gm powd pack PO SCH (21:28)
[2023-05-21] MEDS: morphine 2 MG/ML inj. syringe IV PRN (21:31)
[2023-05-21 22:00] VITALS: BP 105/56; PULSE 106; RESP 18; TEMP 97.9; O2SAT 94
[2023-05-21] MEDS: insulin glargine (Lantus) pen - multi-dose SQ SCH (22:15)
[2023-05-22] MEDS: HYDROcodone/acetaminophen 5mg/325mg tablet PO PRN ×2 (01:58→08:49)
[2023-05-22] MEDS: morphine 2 MG/ML inj. syringe IV PRN ×2 (05:47→21:20)
[2023-05-22 06:49] LABS: BASOPHILS % (AUTO) 0.6 % (0-1); EOSINOPHILS # (AUTO) 0.2 X10'3 (0-0.9); EOSINOPHILS % (AUTO) 2.5 % (0-6); HEMOGLOBIN 12.7 g/dl (14.0-17.9); LYMPHOCYTES # (AUTO) 0.6 X10'3 (1.1-4.8); LYMPHOCYTES % (AUTO) 7.1 % (21-51); MEAN CORPUSCULAR HEMOGLOBIN 31.3 PG (27.0-31.0); MEAN CORPUSCULAR HGB CONC 33.3 g/dL (33.0-36.5); MEAN CORPUSCULAR VOLUME 94.1 FL (78-98); MEAN PLATELET VOLUME 8.5 FL (7.4-10.4); MONOCYTES # (AUTO) 0.9 X10'3 (0-0.9); MONOCYTES % (AUTO) 10.4 % (2-12); NEUTROPHILS # (AUTO) 6.8 X10'3 (1.8-7.7); NEUTROPHILS % (AUTO) 79.4 % (42-75); PLATELET COUNT 189 X10'3 (140-440); RED BLOOD COUNT 4.04 X10'6 (4.70-6.10); RED CELL DISTRIBUTION WIDTH 14.8 % (11.5-14.5); WHITE BLOOD COUNT 8.5 X10'3 (4.5-11.0)
[2023-05-22 06:57] VITALS: BP 148/55; PULSE 91; RESP 15; TEMP 97.8; O2SAT 98
[2023-05-22 07:59] LABS: ALANINE AMINOTRANSFERASE 33 U/L (12-78); ALBUMIN 2.3 G/DL (3.4-5.0); ALBUMIN/GLOBULIN RATIO 0.6 (1.1-1.5); ALKALINE PHOSPHATASE 128 IU/L (46-116); ASPARTATE AMINO TRANSFERASE 47 U/L (10-37); BILIRUBIN,TOTAL 0.4 MG/DL (0.1-1.0); BLOOD UREA NITROGEN 57 MG/DL (7-18); BUN/CREATININE RATIO 22.1 (10.0-20.0); CALCIUM 8.8 MG/DL (8.5-10.1); CREATININE 2.58 MG/DL (0.60-1.10); GLUCOSE 171 MG/DL (70-104); TOTAL CARBON DIOXIDE 28.8 MMOL/L (24-32); TOTAL PROTEIN 6.4 G/DL (6.4-8.2); eCRCL 20 ML/MIN; eGFR 24 ML/MIN
[2023-05-22 08:00] VITALS: RESP 15; O2SAT 98
[2023-05-22 08:23] LABS: ANION GAP 6 (8-16); CHLORIDE 88 MMOL/L (99-107); POTASSIUM 4.2 MMOL/L (3.5-5.1)
[2023-05-22 08:30] LABS: SODIUM 123 MMOL/L (135-145)
[2023-05-22] MEDS: normal saline 1000ml 1,000 ML IV SCH (08:30)
[2023-05-22] MEDS: CefTRIAXone/D5W-Rocephin 1gm 50 ML IV SCH (08:49)
[2023-05-22] MEDS: furosemide 20 MG/2 ML vial IV SCH (08:50)
[2023-05-22] MEDS: ESCITALOPRAM OXALATE 5 MG TABLET PO SCH (08:50)
[2023-05-22] MEDS: isosorbide mononitrate 30mg tab.SR.24H PO SCH (08:50)
[2023-05-22] MEDS: heparin, porcine 5000 units/ml vial SQ SCH ×2 (08:50→19:49)
[2023-05-22] MEDS: tamsulosin 0.4mg capsule PO SCH (08:50)
[2023-05-22] MEDS: aspirin 81mg tab.chew PO SCH (08:50)
[2023-05-22] MEDS: pantoprazole 40mg Tablet.DR PO SCH (08:51)
[2023-05-22] MEDS: nystatin 15 GM powder TP SCH ×3 (08:52→21:00)
[2023-05-22] MEDS: insulin Lispro (HumaLOG) vial - multi-dose SQ SCH ×2 (09:04→13:48)
[2023-05-22 10:03] VITALS: BP 173/60; PULSE 96; RESP 18; TEMP 97.7; O2SAT 88
[2023-05-22] MEDS ORDERED: furosemide 20 MG/2 ML vial IV SCH (10:05)
--- NOTE | 2023-05-22 11:52 | NUR ---
Problems reprioritized. Patient report given, questions answered & plan of care reviewed with MIGUEL ESTEBAN.
--- NOTE | 2023-05-22 13:49 | NUR ---
EVEN THOUGH PATIENTS bLOOD SUGARS ARE ELEVATED HE ATE 0% OF HIS LUNCH THEREFORE I CHOSE TO CUT HIS INSULIN UNITS IN HALF CONTINUE TO MONITOR PATIENT
--- NOTE | 2023-05-22 15:30 | NUR ---
With assistance with the PN, bladder scanned done, results showed 200cc in bladder. Continue to monitor pt.
[2023-05-22 18:00] VITALS: BP 148/55; PULSE 91; RESP 15; TEMP 97.5; O2SAT 98
[2023-05-22] MEDS ORDERED: polyethylene glycol 3350 17gm powd pack PO PRN (18:35)
[2023-05-22 18:50] VITALS: RESP 15; O2SAT 98
[2023-05-22] MEDS: HYDROcodone/acetaminophen 10/325mg tab PO PRN (18:59)
[2023-05-22] MEDS ORDERED: glucagon, human recombinant 1mg kit SUBCUT PRN (19:55)
[2023-05-22] MEDS ORDERED: MESSAGE TO PHARMACY PO ONE (19:55)
[2023-05-22] MEDS ORDERED: DEXTROSE 15 GM of carb/4 tabs (each vial/BOTTLE has 4 tablets) PO PRN ×2 (19:55)
[2023-05-22] MEDS ORDERED: dextrose 50%-water 50ml dispensing syringe IV PRN ×2 (19:55)
[2023-05-22] MEDS: insulin glargine (Lantus) pen - multi-dose SQ SCH ×2 (21:00→21:45)
[2023-05-22] MEDS: atorvastatin 10mg tablet PO SCH (21:22)
[2023-05-22] MEDS: ROPINIRole 1mg tablet PO SCH (21:22)
[2023-05-22] MEDS: Melatonin 3mg tablet PO SCH (21:23)
[2023-05-22 22:00] VITALS: BP 169/62; PULSE 105; RESP 18; TEMP 98.9; O2SAT 93
[2023-05-23] MEDS: HYDROcodone/acetaminophen 10/325mg tab PO PRN ×3 (01:36→15:07)
[2023-05-23] MEDS: insulin Lispro (HumaLOG) vial - multi-dose SQ SCH ×2 (01:44→10:03)
[2023-05-23 06:00] VITALS: BP 140/65; PULSE 81; RESP 16; TEMP 98.6; O2SAT 92
--- NOTE | 2023-05-23 06:00 | NUR ---
Patient in room ORTHO 4009. I have received report from Oni ESTEBAN and had the opportunity to ask questions and assume patient care.
--- NOTE | 2023-05-23 06:58 | NUR ---
Problems reprioritized. Patient report given, questions answered & plan of care reviewed with SHAINA. Addendum: 05/23/23 at 0658 by Marcos Harris RN Amended: Links added.
--- NOTE | 2023-05-23 07:10 | NUR ---
Yes order to put smith cath back in.
[2023-05-23] MEDS: CefTRIAXone/D5W-Rocephin 1gm 50 ML IV SCH (07:29)
[2023-05-23 07:39] LABS: BASOPHILS % (AUTO) 0.4 % (0-1); EOSINOPHILS # (AUTO) 0.2 X10'3 (0-0.9); EOSINOPHILS % (AUTO) 1.9 % (0-6); HEMOGLOBIN 11.9 g/dl (14.0-17.9); LYMPHOCYTES # (AUTO) 0.5 X10'3 (1.1-4.8); MEAN CORPUSCULAR HEMOGLOBIN 30.9 PG (27.0-31.0); MEAN CORPUSCULAR HGB CONC 32.3 g/dL (33.0-36.5); MEAN CORPUSCULAR VOLUME 95.9 FL (78-98); MONOCYTES # (AUTO) 0.8 X10'3 (0-0.9); MONOCYTES % (AUTO) 8.7 % (2-12); NEUTROPHILS # (AUTO) 7.5 X10'3 (1.8-7.7); PLATELET COUNT 218 X10'3 (140-440); RED BLOOD COUNT 3.86 X10'6 (4.70-6.10); RED CELL DISTRIBUTION WIDTH 15.6 % (11.5-14.5); WHITE BLOOD COUNT 9.1 X10'3 (4.5-11.0)
[2023-05-23 07:42] LABS: ALANINE AMINOTRANSFERASE 26 U/L (12-78); ALBUMIN 2.2 G/DL (3.4-5.0); ALBUMIN/GLOBULIN RATIO 0.5 (1.1-1.5); ALKALINE PHOSPHATASE 128 IU/L (46-116); ANION GAP 7 (8-16); ASPARTATE AMINO TRANSFERASE 36 U/L (10-37); BILIRUBIN,TOTAL 0.4 MG/DL (0.1-1.0); BLOOD UREA NITROGEN 55 MG/DL (7-18); BUN/CREATININE RATIO 27.9 (10.0-20.0); CALCIUM 8.8 MG/DL (8.5-10.1); CHLORIDE 100 MMOL/L (99-107); CREATININE 1.97 MG/DL (0.60-1.10); GLUCOSE 201 MG/DL (70-104); POTASSIUM 4.7 MMOL/L (3.5-5.1); SODIUM 133 MMOL/L (135-145); TOTAL CARBON DIOXIDE 25.7 MMOL/L (24-32); TOTAL PROTEIN 6.3 G/DL (6.4-8.2); eCRCL 26 ML/MIN; eGFR 32 ML/MIN
[2023-05-23] MEDS: ESCITALOPRAM OXALATE 5 MG TABLET PO SCH (07:44)
[2023-05-23] MEDS: aspirin 81mg tab.chew PO SCH (07:45)
[2023-05-23] MEDS: isosorbide mononitrate 30mg tab.SR.24H PO SCH (07:45)
[2023-05-23] MEDS: tamsulosin 0.4mg capsule PO SCH (07:45)
[2023-05-23] MEDS: heparin, porcine 5000 units/ml vial SQ SCH ×2 (07:56→21:39)
[2023-05-23 08:00] VITALS: RESP 16; O2SAT 92
[2023-05-23] MEDS: nystatin 15 GM powder TP SCH ×3 (08:00→21:00)
[2023-05-23] MEDS ORDERED: furosemide 20 MG/2 ML vial IV SCH (10:05)
--- NOTE | 2023-05-23 11:06 | NUR ---
PAGER ID: [phone] MESSAGE: [id number]- Megan Matias- may I have Urojet numbing agent for a straight cath? DILIP Garcia [phone]
[2023-05-23] MEDS ORDERED: LidoCAINE 2% Topical Jelly 11mL syringe MM ONE (11:15)
--- NOTE | 2023-05-23 12:19 | NUR ---
Per Dr. Rasmussen, due to patient age and last A1C of 7.3. This A1C is good for him and his age. Accu check qshift blood sugar range should stay between 160-185. If patient is above 185 then treat him with protocol level 2 only. Don't go above the level 2 protocol.
[2023-05-23] MEDS: morphine 2 MG/ML inj. syringe IV PRN (12:25)
--- NOTE | 2023-05-23 13:11 | NUR ---
PAGER ID: [phone] MESSAGE: [id number]- Florencio, R- Nuc med wants a chest xray ordered. Pls advise? Solo Garcia [phone]
[2023-05-23] MEDS ORDERED: LORazepam 2 mg/ml vial IV ONE (15:40)
--- NOTE | 2023-05-23 15:46 | NUR ---
Taty from Radiology called and said patient is unable to feel his feet and below his knees. He is unable to breathe. He states that its are to breathe laying down. Advised Dr. Rasmussen of this and she is wanting patient to have 1mg Ativan IV to complete this test.
[2023-05-23] MEDS ORDERED: LidoCAINE 2% Topical Jelly 11mL syringe MM SCH (16:00)
--- NOTE | 2023-05-23 16:00 | NUR ---
Radiologist called and wanted to talk to Dr. Rasmussen. Provided him with Dr. Rasmussen cell number per Dr. Rasmussen.
--- NOTE | 2023-05-23 17:03 | NUR ---
PAGER ID: [phone] MESSAGE: [id number]- Florenico, R- patient is back from MRI. Is it ok for a smith cath to be ordered for immobilization? Solo Radha [phone]
[2023-05-23 17:19] LABS: ABG BASE EXCESS -0.1 mmol/L (-2.0-2.0); ABG HCO3 26.7 mmol/L (22.0-26.0); ABG OXYGEN SATURATION 94.6 % (94-97); ABG PCO2 (T) 52.9 mmHg (35.0-48.0); ABG PH (T) 7.321 (7.340-7.440); ABG PO2 (T) 74.6 mmHg (75.0-100.0); ALLEN'S TEST POSITIVE; FCOHb 0.8 % (0.0-3.9); FHHb 5.3 % (0.0-5.0); FLOW 4 L/min; FMetHb 0.3 % (0.0-1.5); FO2Hb 93.6 % (94-97); MODE NASAL CANNULA; TOTAL HEMOGLOBIN 12.3 G/dl (14.0-17.9)
--- NOTE | 2023-05-23 17:19 | NUR ---
Patient lives at [facility] spoke to Will Lawler (Licensee) @ [phone]. No family contact in 7 years. [facility] [phone] Sheldon Deal
[2023-05-23 18:00] VITALS: BP 113/71; PULSE 113; RESP 18; TEMP 99; O2SAT 98
--- NOTE | 2023-05-23 18:07 | NUR ---
Keeley the administer called from the residential [facility] and stated that she took patient to [facility] on because he didn't have a BM. They sent him home. On the [facility] for for no BM. ER did CT and stated that patient gallbladder is calcified and full of stool. They gave him lactulose latex. They sent him home. On the came back to [facility] ER for constipation and they gave him an enema. Had a BM and felt better. Went home and then fell in the shower. They brought patient back to the ER 2 hours later. In the ER they did imaging and the ER doctor stated that the patient does have a broken L3 and vertebrae, heart enzymes wasn't pumping right and kidneys were shutting down. Prior to all this the patient was ambulatory with a walker. Patient was never able to lay flat and back is permanently curved at the top. Patient has always been hunched over. POA for residential placement is [facility] Keeley Pollard [phone] Patient is Keeley stated that she is have came to visit every day except yesterday and today. She stated that she told the nurses that he has dangling his feet on the side of the bed.
[2023-05-23] MEDS ORDERED: LidoCAINE 2% Topical Jelly 11mL syringe TOP ONE (18:20)
--- NOTE | 2023-05-23 18:35 | NUR ---
PER RADIOLOGIST DR. AMBAR PORTILLO MRI OF THORACIC SPINE SHOWED THORACIC CORD COMPRESSION T11-T12 AND NEEDS NEUROSURGEON CONSULT.CALLED DR. TRIPP LEFT A MESSAGE IN HER VOICEMAIL.[id number] DR. TRIPP.1854 DR. TRIPP CALLED AND SHE SAID SHE KNOWS WHAT'S GOING WITH THE PT AND WILL CALL POA AND CHANGE CODE STATUS.SHE IS ALSO AWARE OF THE SARAH LOWER LEGS NUMBNESS AND JUST TRANSCRIBE WHAT SHE ORDERED GIVEN TO SHAINA.PT ASLEEP BREATHING EVEN AND UNLABORED.O2 SAT MONITORED.WILL CONTINUE TO MONITOR PT.
--- NOTE | 2023-05-23 18:45 | NUR ---
Problems reprioritized. Patient report given, questions answered & plan of care reviewed with Karli ESTEBAN.
[2023-05-23] MEDS: Melatonin 3mg tablet PO SCH (21:00)
[2023-05-23] MEDS: atorvastatin 10mg tablet PO SCH (21:00)
[2023-05-23] MEDS: ROPINIRole 1mg tablet PO SCH (21:00)
[2023-05-23 22:00] VITALS: BP 194/84; PULSE 106; RESP 16; TEMP 97.8; O2SAT 93
[2023-05-23 22:43] VITALS: BP 168/78
[2023-05-23] MEDS: normal saline 1000ml 1,000 ML IV SCH (23:01)
[2023-05-24] MEDS: normal saline 1000ml 1,000 ML IV SCH (02:46)
[2023-05-24 06:00] VITALS: BP 156/77; PULSE 103; RESP 16; TEMP 97.6; O2SAT 93
--- NOTE | 2023-05-24 06:15 | NUR ---
Patient in room ORTHO 4009. I have received report from Karli RN and had the opportunity to ask questions and assume patient care.
[2023-05-24 06:50] LABS: BASOPHILS # (AUTO) 0.1 X10'3 (0-0.2); BASOPHILS % (AUTO) 0.8 % (0-1); EOSINOPHILS # (AUTO) 0.3 X10'3 (0-0.9); EOSINOPHILS % (AUTO) 2.8 % (0-6); HEMATOCRIT 38.6 % (42.0-52.0); HEMOGLOBIN 12.7 g/dl (14.0-17.9); LYMPHOCYTES # (AUTO) 0.6 X10'3 (1.1-4.8); LYMPHOCYTES % (AUTO) 6.2 % (21-51); MEAN CORPUSCULAR HEMOGLOBIN 30.5 PG (27.0-31.0); MEAN CORPUSCULAR HGB CONC 32.9 g/dL (33.0-36.5); MEAN CORPUSCULAR VOLUME 92.6 FL (78-98); MEAN PLATELET VOLUME 8.1 FL (7.4-10.4); MONOCYTES # (AUTO) 0.9 X10'3 (0-0.9); MONOCYTES % (AUTO) 9.9 % (2-12); NEUTROPHILS # (AUTO) 7.2 X10'3 (1.8-7.7); NEUTROPHILS % (AUTO) 80.3 % (42-75); PLATELET COUNT 234 X10'3 (140-440); RED BLOOD COUNT 4.16 X10'6 (4.70-6.10); RED CELL DISTRIBUTION WIDTH 14.9 % (11.5-14.5)
[2023-05-24 07:16] LABS: ALANINE AMINOTRANSFERASE 25 U/L (12-78); ALBUMIN 2.1 G/DL (3.4-5.0); ALBUMIN/GLOBULIN RATIO 0.5 (1.1-1.5); ALKALINE PHOSPHATASE 131 IU/L (46-116); ANION GAP 4 (8-16); ASPARTATE AMINO TRANSFERASE 30 U/L (10-37); BILIRUBIN,TOTAL 0.4 MG/DL (0.1-1.0); BLOOD UREA NITROGEN 46 MG/DL (7-18); BUN/CREATININE RATIO 31.5 (10.0-20.0); CALCIUM 9.1 MG/DL (8.5-10.1); CHLORIDE 102 MMOL/L (99-107); CREATININE 1.46 MG/DL (0.60-1.10); GLUCOSE 199 MG/DL (70-104); POTASSIUM 4.9 MMOL/L (3.5-5.1); SODIUM 137 MMOL/L (135-145); TOTAL CARBON DIOXIDE 30.6 MMOL/L (24-32); TOTAL PROTEIN 6.3 G/DL (6.4-8.2); eCRCL 35 ML/MIN; eGFR 46 ML/MIN
[2023-05-24 08:00] VITALS: RESP 16; O2SAT 100
[2023-05-24] MEDS: HYDROcodone/acetaminophen 10/325mg tab PO PRN ×3 (08:16→21:49)
[2023-05-24] MEDS: isosorbide mononitrate 30mg tab.SR.24H PO SCH (08:43)
[2023-05-24] MEDS: tamsulosin 0.4mg capsule PO SCH (08:43)
[2023-05-24] MEDS: ESCITALOPRAM OXALATE 5 MG TABLET PO SCH (08:43)
[2023-05-24] MEDS: heparin, porcine 5000 units/ml vial SQ SCH ×2 (08:43→21:09)
[2023-05-24] MEDS: aspirin 81mg tab.chew PO SCH (08:43)
[2023-05-24] MEDS: nystatin 15 GM powder TP SCH ×3 (08:56→21:24)
[2023-05-24] MEDS: insulin Lispro (HumaLOG) vial - multi-dose SQ SCH ×2 (09:50→21:22)
--- NOTE | 2023-05-24 12:00 | NUR ---
Melissa Oglesby Rn and Sheldon Deal behavioral therapy coordinator from [facility] came to check on patient. THey had the opportunity to speak with Dr. Rasmussen about patient care. They stated that they will be talking to the Director and will be in contact in regards to what the decision will be on patient care. CM printed off records for them.
--- NOTE | 2023-05-24 14:50 | NUR ---
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 Pt hx T2DM A1C 7.3% appropriate for age, developmental delay, and unable to site up all the way related to posture per EMR. Pt initially on EC7/thin diet per HUMAN RESOURCES DIRECTOR though downgraded to MM5/nectar thick diet WL today since pt unable to fully sit up. Pt PO ~40% avg meals meeting protein needs given renal function though only ~53% kcal needs. RD notified MD recommends Nepro BIDBD to assist meeting needs. LBM 05/23 received PRN dulcolax 05/21 per EMR. Will monitor for further nutrition intervention needs. Rec: 1. continue MM5/nectar thick diet per HUMAN RESOURCES DIRECTOR; encourage PO, assistance w/ meals 2. Nepro BIDBD to assist meeting needs; pending physician verification in EMR 3. routine bowel care; hx chronic constipation per EMR 4. daily weights per physician Addendum: 05/24/23 at [address] Amended: Links added.
[2023-05-24] MEDS: dexamethasone 4mg/ml inj IV SCH ×2 (15:26→21:05)
--- NOTE | 2023-05-24 18:00 | NUR ---
I have reviewed and agree with interventions, assessments, and documentation by Radha Sutherland LVN.
[2023-05-24 18:10] VITALS: BP 174/69; PULSE 86; RESP 20; TEMP 98.3; O2SAT 96
--- NOTE | 2023-05-24 18:29 | NUR ---
Problems reprioritized. Patient report given, questions answered & plan of care reviewed with Karli ESTEBAN.
--- NOTE | 2023-05-24 18:57 | NUR ---
Director of '[facility] stopped by, as she had received a voicemail from day nurse. She is requesting a call back during the day tomorrow: Keeley Pollard at [phone]
[2023-05-24] MEDS: insulin glargine (Lantus) pen - multi-dose SQ SCH (21:20)
[2023-05-24] MEDS: Melatonin 3mg tablet PO SCH (21:47)
[2023-05-24] MEDS: atorvastatin 10mg tablet PO SCH (21:47)
[2023-05-24] MEDS: ROPINIRole 1mg tablet PO SCH (21:47)
[2023-05-25] VITALS (7 sets, daily range): BP systolic 115–202; BP diastolic 49–95; PULSE 76–112; RESP 14–20; TEMP 97.6–98.4; O2SAT 93–98
[2023-05-25] MEDS: dexamethasone 4mg/ml inj IV SCH ×4 (02:13→21:40)
[2023-05-25] MEDS: morphine 2 MG/ML inj. syringe IV PRN ×3 (02:56→22:09)
[2023-05-25] MEDS: HYDROcodone/acetaminophen 10/325mg tab PO PRN ×3 (04:28→16:49)
--- NOTE | 2023-05-25 06:41 | NUR ---
I have received report from EULALIA Calvillo and had the opportunity to ask questions and assume patient care. No distress at this time.
--- NOTE | 2023-05-25 07:47 | NUR ---
promotional table spacer promotional table spacer Page Sent promotional table spacer PAGER ID: [phone] MESSAGE: rekha [id number] Pt in rm 4010 B Hernan Matias: His BP this morning has ran 161/96 on both sides, may I please have an order for hydralazine?
[2023-05-25] MEDS ORDERED: metoprolol tartrate 50mg tablet PO ONE (08:05)
[2023-05-25] MEDS: isosorbide mononitrate 30mg tab.SR.24H PO SCH (08:08)
[2023-05-25] MEDS: tamsulosin 0.4mg capsule PO SCH (08:08)
[2023-05-25] MEDS: aspirin 81mg tab.chew PO SCH (08:08)
[2023-05-25] MEDS: nystatin 15 GM powder TP SCH ×3 (08:08→21:54)
[2023-05-25] MEDS: ESCITALOPRAM OXALATE 5 MG TABLET PO SCH (08:08)
[2023-05-25] MEDS: heparin, porcine 5000 units/ml vial SQ SCH ×2 (08:08→21:40)
[2023-05-25] MEDS: insulin Lispro (HumaLOG) vial - multi-dose SQ SCH ×3 (10:29→19:38)
[2023-05-25] MEDS: normal saline 1000ml 1,000 ML IV SCH ×2 (16:14→21:53)
--- NOTE | 2023-05-25 18:00 | NUR ---
I have reviewed and agree with interventions, assessments, and documentation by Janice Nolasco LVN.
--- NOTE | 2023-05-25 18:40 | NUR ---
Patient in room ORTHO 4010. I have received report from DAVE FARRAR and had the opportunity to ask questions and assume patient care.
[2023-05-25] MEDS ORDERED: Melatonin 3mg tablet PO ONE ×2 (21:35)
[2023-05-25] MEDS: atorvastatin 10mg tablet PO SCH (21:39)
[2023-05-25] MEDS: ROPINIRole 1mg tablet PO SCH (21:39)
[2023-05-25] MEDS: insulin glargine (Lantus) pen - multi-dose SQ SCH (22:01)
[2023-05-26] MEDS: HYDROcodone/acetaminophen 10/325mg tab PO PRN ×2 (00:54→08:43)
[2023-05-26] MEDS: dexamethasone 4mg/ml inj IV SCH ×2 (02:28→08:42)
[2023-05-26] MEDS: morphine 2 MG/ML inj. syringe IV PRN ×2 (04:47→13:11)
[2023-05-26 06:00] VITALS: BP 192/86; PULSE 97; RESP 18; TEMP 96.8; O2SAT 93
--- NOTE | 2023-05-26 06:30 | NUR ---
Problems reprioritized. Patient report given, questions answered & plan of care reviewed with ARMEN ESTEBAN.
[2023-05-26 08:00] VITALS: RESP 18; O2SAT 93
[2023-05-26] MEDS: nystatin 15 GM powder TP SCH ×3 (08:00→20:40)
[2023-05-26] MEDS: heparin, porcine 5000 units/ml vial SQ SCH (08:43)
[2023-05-26] MEDS: tamsulosin 0.4mg capsule PO SCH (08:43)
[2023-05-26] MEDS: isosorbide mononitrate 30mg tab.SR.24H PO SCH (08:43)
[2023-05-26] MEDS: ESCITALOPRAM OXALATE 5 MG TABLET PO SCH (08:44)
[2023-05-26] MEDS: aspirin 81mg tab.chew PO SCH (08:44)
[2023-05-26] MEDS: insulin Lispro (HumaLOG) vial - multi-dose SQ SCH ×2 (09:04→13:10)
[2023-05-26 10:00] VITALS: BP 136/82; PULSE 99; RESP 16; TEMP 98.8; O2SAT 93
--- NOTE | 2023-05-26 10:04 | NUR ---
Isael Consult: Isael 12 w/ skin intact per EMR. Noted pt Nepro ONS not verified by prior physician in EMR. AXEL d/w RN regarding initiation of Nepro BID if DO agreeable this AM. Addendum: 05/26/23 at [address] Amended: Links added.
[2023-05-26 11:52] VITALS: RESP 18; O2SAT 93
[2023-05-26] MEDS ORDERED: oxyCODONE IR 5mg (immed. release) tablet PO PRN ×2 (14:15)
--- NOTE | 2023-05-26 14:20 | NUR ---
F/u: Noted pt has been made DNR with comfort care. Will continue to follow per LOS. Recommendations: 1. Routine bowel care; h/o chronic constipation per EMR Addendum: 05/26/23 at [address] Amended: Links added.
--- NOTE | 2023-05-26 16:27 | NUR ---
PRESSURE ULCER EDUCATION: DEFINITION: A pressure ulcer is an area of skin that breaks down when you stay in one position too long. The constant pressure against the skin reduces the blood flow to that area and the affected tissue dies. CAUSES: "Being bedridden or in a wheelchair "Fragile skin "Having a chronic condition, such as diabetes or vascular disease "Inability to move certain parts of your body without assistance "Older age "Incontinence of urine or stool SYMPTOMS: "A reddened area that DOES NOT turn white when pressed on - this can be the beginning of a pressure ulcer "A blister, deep sore or a crater - these can be advanced pressure ulcers FIRST AID: "Relieve the pressure on this area "Keep the area clean and dry "Call your primary doctor if you see any of the above symptoms "DO NOT massage the area "DO NOT use a donut shaped or ring shaped pillow- these actually interfere with the blood flow and cause complications PREVENTION: "Check for pressure ulcers everyday "Change position at least every two hours to relieve pressure "Use items that help relieve pressure- pillows, sheepskin, foam padding, and powders. "Keep skin clean and dry "Eat healthy well balanced meals "Exercise daily IF YOU SEE ANY OF THESE SYMPTOMS WHILE IN THE HOSPITAL - TELL YOUR NURSE IMMEDIATELY. IF YOU SEE ANY OF THESE SYMPTOMS WHILE AT HOME OR HAVE ANY QUESTIONS OR CONCERNS ABOUT PRESSURE ULCERS - CALL YOUR PRIMARY DOCTOR IMMEDIATELY. Addendum: 05/26/23 at 1627 by Melissa Kirkland RN Amended: Links added.
[2023-05-26] MEDS: morphine 10mg/0.5ml (conc. morphine) oral syringe PO PRN ×2 (17:39→19:54)
[2023-05-26 20:00] VITALS: RESP 18; O2SAT 95
[2023-05-26] MEDS: LORazepam 0.5 MG tablet PO PRN (20:06)
[2023-05-26] MEDS: Melatonin 3mg tablet PO SCH (20:40)
[2023-05-26] MEDS: ROPINIRole 1mg tablet PO SCH (20:40)
[2023-05-26 22:00] VITALS: BP 147/66; PULSE 81; RESP 20; TEMP 97.9; O2SAT 90
[2023-05-27] MEDS: morphine 10mg/0.5ml (conc. morphine) oral syringe PO PRN ×3 (03:40→20:02)
--- NOTE | 2023-05-27 06:23 | NUR ---
Problems reprioritized. Patient report given, questions answered & plan of care reviewed with ARMEN ESTEBAN.
[2023-05-27 08:00] VITALS: RESP 19; O2SAT 92
[2023-05-27] MEDS: nystatin 15 GM powder TP SCH ×3 (08:46→21:00)
[2023-05-27] MEDS: LORazepam 0.5 MG tablet PO PRN (08:46)
[2023-05-27] MEDS: isosorbide mononitrate 30mg tab.SR.24H PO SCH (08:46)
[2023-05-27] MEDS: tamsulosin 0.4mg capsule PO SCH (08:46)
[2023-05-27 10:00] VITALS: BP 133/71; PULSE 105; RESP 19; TEMP 97.8; O2SAT 92
[2023-05-27] MEDS: hyoscyamine 0.125mg TAB.SUBL SL PRN (13:37)
[2023-05-27] MEDS: morphine 2 MG/ML inj. syringe IV PRN (17:28)
--- NOTE | 2023-05-27 18:23 | NUR ---
Problems reprioritized. Patient report given, questions answered & plan of care reviewed with KAHLIL GUILLORY RN.
[2023-05-27 20:00] VITALS: RESP 18; O2SAT 90
[2023-05-27 22:00] VITALS: BP 137/62; PULSE 92; RESP 18; TEMP 98.2; O2SAT 90
[2023-05-27] MEDS: ROPINIRole 1mg tablet PO SCH (22:59)
[2023-05-27] MEDS: Melatonin 3mg tablet PO SCH (22:59)
[2023-05-28] MEDS: morphine 10mg/0.5ml (conc. morphine) oral syringe PO PRN ×4 (02:43→19:07)
--- NOTE | 2023-05-28 06:28 | NUR ---
Patient in room ORTHO 4010. I have received report from Jennifer ESTEBAN and had the opportunity to ask questions and assume patient care.
[2023-05-28 06:29] VITALS: BP 133/69; PULSE 59; RESP 18; TEMP 98.8; O2SAT 98
[2023-05-28] MEDS: tamsulosin 0.4mg capsule PO SCH (08:00)
[2023-05-28] MEDS: isosorbide mononitrate 30mg tab.SR.24H PO SCH (09:02)
[2023-05-28] MEDS: nystatin 15 GM powder TP SCH ×3 (09:05→20:44)
[2023-05-28 10:00] VITALS: BP 86/38; PULSE 91; RESP 17; TEMP 97.3; O2SAT 90
--- NOTE | 2023-05-28 18:43 | NUR ---
Patient in room ORTHO 4010. I have received report from Lisette and had the opportunity to ask questions and assume patient care.
--- NOTE | 2023-05-28 19:00 | NUR ---
Patient in room ORTHO 4010. I have received report from EULALIA MARX and had the opportunity to ask questions and assume patient care.
[2023-05-28 20:00] VITALS: RESP 14
[2023-05-28] MEDS: ROPINIRole 1mg tablet PO SCH (20:43)
[2023-05-28] MEDS: Melatonin 3mg tablet PO SCH (20:44)
--- NOTE | 2023-05-29 04:58 | NUR ---
I agree with MANDARIN SPEAKING NANNY physical assessment.
--- NOTE | 2023-05-29 06:29 | NUR ---
Problems reprioritized. Patient report given, questions answered & plan of care reviewed with LENI Velazco.
--- NOTE | 2023-05-29 06:37 | NUR ---
Problems reprioritized. Patient report given, questions answered & plan of care reviewed with LENI Velazco.
[2023-05-29] MEDS: nystatin 15 GM powder TP SCH ×3 (08:00→21:00)
[2023-05-29] MEDS: tamsulosin 0.4mg capsule PO SCH (09:03)
[2023-05-29] MEDS: isosorbide mononitrate 30mg tab.SR.24H PO SCH (09:03)
[2023-05-29] MEDS: morphine 2 MG/ML inj. syringe IV PRN ×2 (09:57→22:05)
[2023-05-29] MEDS: morphine 10mg/0.5ml (conc. morphine) oral syringe PO PRN ×3 (14:23→19:39)
[2023-05-29 20:00] VITALS: RESP 18; O2SAT 92
[2023-05-29] MEDS: Melatonin 3mg tablet PO SCH (21:00)
[2023-05-29] MEDS: ROPINIRole 1mg tablet PO SCH (21:00)
[2023-05-29 22:00] VITALS: BP 171/75; PULSE 110; RESP 20; TEMP 98.9; O2SAT 92
[2023-05-29] MEDS: LORazepam 2 mg/ml vial IV PRN (22:31)
[2023-05-30] MEDS: morphine 2 MG/ML inj. syringe IV PRN (04:27)
[2023-05-30] MEDS: LORazepam 2 mg/ml vial IV PRN (05:45)
--- NOTE | 2023-05-30 06:20 | NUR ---
Patient in room ORTHO 4010. I have received report from Meenakshi ESTEBAN and had the opportunity to ask questions and assume patient care.
--- NOTE | 2023-05-30 06:23 | NUR ---
Problems reprioritized. Patient report given, questions answered & plan of care reviewed with LENI MERRITT.
[2023-05-30 08:00] VITALS: RESP 20; O2SAT 89
[2023-05-30] MEDS: tamsulosin 0.4mg capsule PO SCH (08:00)
[2023-05-30] MEDS: isosorbide mononitrate 30mg tab.SR.24H PO SCH (08:00)
[2023-05-30] MEDS: nystatin 15 GM powder TP SCH ×3 (08:00→21:00)
[2023-05-30 10:00] VITALS: BP 158/77; PULSE 106; RESP 20; TEMP 97.8; O2SAT 89
--- NOTE | 2023-05-30 13:15 | NUR ---
I have reviewed and agree with interventions, assessments, and documentation by Radha Sutherland LVN.
--- NOTE | 2023-05-30 18:15 | NUR ---
I called [facility] twice today to see what mortuary to go to. I called at 1330 and 1730. Waiting on return call
--- NOTE | 2023-05-30 18:20 | NUR ---
Problems reprioritized. Patient report given, questions answered & plan of care reviewed with Meenakshi ESTEBAN.
[2023-05-30 20:00] VITALS: RESP 17
[2023-05-30] MEDS: Melatonin 3mg tablet PO SCH (21:00)
[2023-05-30] MEDS: ROPINIRole 1mg tablet PO SCH (21:00)
[2023-05-30] MEDS: morphine 10mg/0.5ml (conc. morphine) oral syringe PO PRN (21:23)
--- NOTE | 2023-05-30 21:50 | NUR ---
LEO MCINTOSH, ADMIN [facility] CALLED TO LET US KNOW THE MORTUARY FOR PT.- [place] IN [place]. CAN REACH HER [phone].
[2023-05-30 22:00] VITALS: BP 160/79; PULSE 114; RESP 19; TEMP 100.4; O2SAT 93
[2023-05-31] MEDS: morphine 10mg/0.5ml (conc. morphine) oral syringe PO PRN ×5 (02:29→22:14)
[2023-05-31] MEDS: LORazepam 2 mg/ml vial IV PRN ×2 (02:37→14:47)
--- NOTE | 2023-05-31 02:48 | NUR ---
PT BECAME VERY AGITATED TOUCHING GROIN AREA. I FLUSH THE CATHETER AND BLADDER SCAN. SCAN ONLY SHOWED 75CC. PAIN MED WAS GIVEN EARLIER BUT PT STILL AGITATED. AFTER ATIVAN, PT CALMED DOWN. NOT MOANING RIGHT NOW.
--- NOTE | 2023-05-31 06:20 | NUR ---
Patient in room ORTHO 4010. I have received report from Jillian ESTEBAN and had the opportunity to ask questions and assume patient care.
--- NOTE | 2023-05-31 06:26 | NUR ---
Problems reprioritized. Patient report given, questions answered & plan of care reviewed with LENI MERRITT.
[2023-05-31 08:00] VITALS: RESP 22; O2SAT 97
[2023-05-31] MEDS: nystatin 15 GM powder TP SCH ×3 (08:00→21:00)
[2023-05-31] MEDS: isosorbide mononitrate 30mg tab.SR.24H PO SCH (08:00)
[2023-05-31] MEDS: tamsulosin 0.4mg capsule PO SCH (08:00)
[2023-05-31 10:00] VITALS: BP 121/59; PULSE 91; RESP 22; TEMP 99.3; O2SAT 97
[2023-05-31] MEDS ORDERED: morphine 2 MG/ML inj. syringe IV PRN ×2 (14:25)
--- NOTE | 2023-05-31 16:21 | NUR ---
Sheldon Deal called and stated that the patient was set up with [facility] in [place] in for service, burial and casket. But in 2020 a burial trust with [employer] was set up only for cremation. Sheldon is going to speak with his tipple supervisor and waiting for the other company tipple supervisor to be in touch. If patient passes then call [facility] for further instruction.
[2023-05-31] MEDS: hyoscyamine 0.125mg TAB.SUBL SL PRN (17:20)
--- NOTE | 2023-05-31 17:41 | NUR ---
Sheldon called back and stated that he was able to combine the [facility] and [facility] services together. Patient now is completely covered. When patients passes james chavira is who we call.
[2023-05-31 18:00] VITALS: BP 140/56; PULSE 87; RESP 12; TEMP 98.9; O2SAT 78
--- NOTE | 2023-05-31 18:00 | NUR ---
I have reviewed and agree with interventions, assessments, and documentation by Radha Sutherland LVN.
--- NOTE | 2023-05-31 18:27 | NUR ---
Problems reprioritized. Patient report given, questions answered & plan of care reviewed with finn ESTEBAN.
[2023-05-31] MEDS: Melatonin 3mg tablet PO SCH (21:00)
[2023-05-31] MEDS: ROPINIRole 1mg tablet PO SCH (21:00)
[2023-06-01] MEDS: morphine 10mg/0.5ml (conc. morphine) oral syringe PO PRN ×6 (01:36→19:46)
[2023-06-01] MEDS: hyoscyamine 0.125mg TAB.SUBL SL PRN (01:41)
[2023-06-01] MEDS: LORazepam 2 mg/ml vial IV PRN ×2 (02:46→12:13)
[2023-06-01 06:00] VITALS: BP 115/50; PULSE 94; RESP 19; TEMP 98.9; O2SAT 79
--- NOTE | 2023-06-01 06:00 | NUR ---
Problems reprioritized. Patient report given, questions answered & plan of care reviewed with LENI MERRITT.
--- NOTE | 2023-06-01 06:05 | NUR ---
Patient in room ORTHO 4010. I have received report from Gisele ESTEBAN and had the opportunity to ask questions and assume patient care.
--- NOTE | 2023-06-01 07:35 | NUR ---
administered Roxanol. Patient is moaning and grimacing. Seems to be painful
[2023-06-01 08:00] VITALS: RESP 10; O2SAT 51
[2023-06-01] MEDS: tamsulosin 0.4mg capsule PO SCH (08:00)
[2023-06-01] MEDS: nystatin 15 GM powder TP SCH ×3 (08:00→21:00)
[2023-06-01] MEDS: isosorbide mononitrate 30mg tab.SR.24H PO SCH (08:00)
[2023-06-01] MEDS: scopolamine 1mg/72 hr patch TD SCH (10:47)
--- NOTE | 2023-06-01 10:48 | NUR ---
administered Roxanol. Patient is moaning and grimacing. Seems to be painful
[2023-06-01 17:02] VITALS: BP 131/62; PULSE 51; RESP 10; TEMP 98.1; O2SAT 51
[2023-06-01 18:00] VITALS: BP 94/50; PULSE 125; RESP 16; TEMP 100.2; O2SAT 58
--- NOTE | 2023-06-01 18:00 | NUR ---
I have reviewed and agree with interventions, assessments, and documentation by Radha Sutherland LVN.
--- NOTE | 2023-06-01 18:02 | NUR ---
administered Roxanol. Patient is moaning and grimacing. Seems to be painful
--- NOTE | 2023-06-01 19:50 | NUR ---
administered Roxanol. Patient is moaning and grimacing. Seems to be painful
[2023-06-01 20:00] VITALS: RESP 16; O2SAT 58
[2023-06-01] MEDS: Melatonin 3mg tablet PO SCH (21:00)
[2023-06-01] MEDS: ROPINIRole 1mg tablet PO SCH (21:00)
--- NOTE | 2023-06-01 21:00 | NUR ---
Agree with Micheal Stovall Lvn physical assessment except for what I charted.
--- NOTE | 2023-06-02 02:25 | NUR ---
Patient in room ORTHO 4010. I have received report from Radha and had the opportunity to ask questions and assume patient care.
--- NOTE | 2023-06-02 02:54 | NUR ---
Problems reprioritized. Patient report given, questions answered & plan of care reviewed with Brie Carmen RN.
[2023-06-02 06:46] VITALS: BP 82/40; PULSE 127; RESP 28; TEMP 98; O2SAT 92
[2023-06-02 07:00] VITALS: RESP 22; O2SAT 92
[2023-06-02] MEDS: tamsulosin 0.4mg capsule PO SCH (08:00)
[2023-06-02] MEDS: isosorbide mononitrate 30mg tab.SR.24H PO SCH (08:00)
[2023-06-02] MEDS: nystatin 15 GM powder TP SCH ×3 (08:00→21:00)
[2023-06-02] MEDS: LORazepam 2 mg/ml vial IV PRN (09:11)
[2023-06-02 18:00] VITALS: BP 75/43; PULSE 122; RESP 21; TEMP 99.3; O2SAT 92
--- NOTE | 2023-06-02 18:25 | NUR ---
Problems reprioritized. Patient report given, questions answered & plan of care reviewed with Prudence.
--- NOTE | 2023-06-02 18:58 | NUR ---
Patient in room ORTHO 4010. I have received report from PRAVEENA Lopez RN and had the opportunity to ask questions and assume patient care.
[2023-06-02 20:00] VITALS: RESP 21; O2SAT 92
[2023-06-02] MEDS: Melatonin 3mg tablet PO SCH (21:00)
[2023-06-02] MEDS: ROPINIRole 1mg tablet PO SCH (21:00)
--- NOTE | 2023-06-03 06:15 | NUR ---
Patient in room ORTHO 4010. I have received report from Isha ESTEBAN and had the opportunity to ask questions and assume patient care.
[2023-06-03] MEDS: isosorbide mononitrate 30mg tab.SR.24H PO SCH (07:35)
[2023-06-03] MEDS: tamsulosin 0.4mg capsule PO SCH (07:35)
[2023-06-03 08:00] VITALS: RESP 26; O2SAT 92
[2023-06-03] MEDS: nystatin 15 GM powder TP SCH ×3 (08:00→21:00)
--- NOTE | 2023-06-03 17:49 | NUR ---
F/u 06/03: Noted pt continues DNR with comfort care. Per note on 06/02 pt remains unresponsive and has significant shallow breathing. Will continue to follow per LOS. Addendum: 06/03/23 at [address] Amended: Links added.
[2023-06-03 18:00] VITALS: BP 80/44; PULSE 114; RESP 24; O2SAT 90
[2023-06-03 20:00] VITALS: RESP 24; O2SAT 90
[2023-06-03] MEDS: ROPINIRole 1mg tablet PO SCH (21:00)
[2023-06-03] MEDS: Melatonin 3mg tablet PO SCH (21:00)
[2023-06-03 22:00] VITALS: BP 77/34; PULSE 105; RESP 18; TEMP 101.2; O2SAT 92
--- NOTE | 2023-06-04 06:25 | NUR ---
Problems reprioritized. Patient report given, questions answered & plan of care reviewed with YVONNE ESTEBAN.
--- NOTE | 2023-06-04 06:42 | NUR ---
Patient in room ORTHO 4010. I have received report from JOSEPH ESTEBAN and had the opportunity to ask questions and assume patient care.
[2023-06-04] MEDS: isosorbide mononitrate 30mg tab.SR.24H PO SCH (08:00)
[2023-06-04] MEDS: tamsulosin 0.4mg capsule PO SCH (08:00)
[2023-06-04] MEDS: nystatin 15 GM powder TP SCH (08:32)
[2023-06-04] MEDS: scopolamine 1mg/72 hr patch TD SCH (08:35)
--- NOTE | 2023-06-04 09:44 | NUR ---
PAGER ID: [phone] MESSAGE: EULALIA RUSSELL, ORTHO, [phone]. RE: [id number] PT. HAS [place] 3099H
--- NOTE | 2023-06-04 09:45 | NUR ---
RN IS TO DOCUMENT YES TO ALL APPLICABLE AREAS Pronouncement of : 1. Time Physician Notified:[id number] 2. Date of :06-04-2023 3. Time of : 942 4. DNR/Withdraw life support documented:DNR WITH COMFORT CARE 5. Monitor strip has been placed on chart:YES 6. Assessment process is of one-minute duration and includes following criteria:YES a) Patient is unresponsive to all stimuli: YES b) Pupils fixed and non-reactive:YES c) Auscultation of precordium reveals absence of heart tones:YES d) Auscultation of lungs reveals absence of breath sounds:YES e) Absence of blood pressure / all vital signs:YES f) QRS complexes are not present on monitor / EKG strip:YES g) Pacer spikes without capture:YES 4. Comments:
[2023-06-04 10:06] VITALS: RESP 22; O2SAT 87
--- NOTE | 2023-06-04 12:52 | NUR ---
PT. PASSED AT 0943h. AUSCULTATED THE HEART FOR 1 FULL MIN, AND DID AND PRINTED OUT EKG THEN PAGED AND CALLED [facility] [employer] AND ANGELINA URBINA. NOTIFIED THE NEXT OF KIN WHICH IS THE WATER TREATMENT SPECIALIST OF THE REHAB FACILITY WHERE THE PT. CAME FROM. [facility] CALLED BACK AT 11AM FOR MORE INFO ON PT. CIARA PICKED UP PT. AT 1245PM.
== END 2023-06-04 09:43 | DRG 52 ==
LOC: ER 20:39 → ED HOLD 05-19 03:30 → ORTHO 4S 05-19 19:30
PROVIDERS: ADMIT Family Medicine; ATTEND Family Medicine
PROC: 4A02XM4 Measurement of Cardiac Total Activity, External Approach (ICD-10-PCS; principal; 2023-05-23)
PROC: 3E073KZ Introduction of Other Diagnostic Substance into Coronary Artery, Percutaneous Approach (ICD-10-PCS; 2023-05-23)
DX: S24.0XXA Concussion and edema of thoracic spinal cord, initial encounter (principal); I50.23 Acute on chronic systolic (congestive) heart failure; J96.91 Respiratory failure, unspecified with hypoxia; I13.0 Hypertensive heart and chronic kidney disease with heart failure and stage 1 through stage 4 chronic kidney disease, or unspecified chronic kidney disease; I16.1 Hypertensive emergency; N39.0 Urinary tract infection, site not specified; N18.4 Chronic kidney disease, stage 4 (severe); G99.2 Myelopathy in diseases classified elsewhere; E87.1 Hypo-osmolality and hyponatremia; J98.11 Atelectasis; N17.9 Acute kidney failure, unspecified; M48.56XA Collapsed vertebra, not elsewhere classified, lumbar region, initial encounter for fracture; M43.14 Spondylolisthesis, thoracic region; Z66 Do not resuscitate; E78.00 Pure hypercholesterolemia, unspecified; E11.22 Type 2 diabetes mellitus with diabetic chronic kidney disease; G25.81 Restless legs syndrome; G89.4 Chronic pain syndrome; J44.9 Chronic obstructive pulmonary disease, unspecified; K21.9 Gastro-esophageal reflux disease without esophagitis; K59.00 Constipation, unspecified; F03.90 Unspecified dementia, unspecified severity, without behavioral disturbance, psychotic disturbance, mood disturbance, and anxiety; K57.30 Diverticulosis of large intestine without perforation or abscess without bleeding; K82.8 Other specified diseases of gallbladder; W18.39XA Other fall on same level, initial encounter; N40.0 Benign prostatic hyperplasia without lower urinary tract symptoms; R31.9 Hematuria, unspecified; Z51.5 Encounter for palliative care; Z79.82 Long term (current) use of aspirin; Z79.84 Long term (current) use of oral hypoglycemic drugs; Z79.899 Other long term (current) drug therapy; Y93.89 Activity, other specified; Y92.89 Other specified places as the place of occurrence of the external cause; Y99.8 Other external cause status
CPT/HCPCS: 36415; 36600; 70450; 71045; 71250; 72070; 72100; 72125; 72146; 72148; 74176; 76700; 78582; 80053; 81001; 82550; 82803; 82948; 83605; 83690; 83735; 83880; 84100; 84145; 84484; 85018; 85025; 85379; 85610; 85730; 87040; 87081; 92508; 92616; 93005; 93306; 97110; 97161; 97530; 99285; A4314; A4349; A5200; A6213; A6258; A9539; A9540; C1758; G0378; J0696; J1100; J1644; J1815; J1940; J2060; J2270; J2405; J7030